=== PATIENT | male | born 1990 | race Caucasian/White ===

== ENCOUNTER → 2017-03-08 10:03 | Outpatient (CLI) | payer BC, SELFPAY ==
[2017-03-08 11:05] LABS: Basophils # 0.1 K/mm3 (0-0.2); Basophils % 0.7 % (0.1-2.0); Eosinophils # 0.2 K/mm3 (0.0-0.4); Eosinophils % 2.3 % (0.1-12.0); Hematocrit 47.1 % (42.0-52.0); Hemoglobin 15.4 g/dL (14.1-18.0); Lymphocytes # 1.9 K/mm3 (0.7-4.5); Lymphocytes % 24.4 K/mm3 (10-50); Mean Corpuscular HGB Conc 32.6 g/dL (31.8-35.4); Mean Corpuscular Hemoglobin 29.4 pg (27.0-31.2); Monocytes # 0.6 K/mm3 (0.1-1.0); Neutrophils # 5.1 K/mm3 (1.8-7.8); Neutrophils % 64.7 % (37.0-80.0); Platelet Count 336 K/mm3 (142-424); Red Blood Count 5.24 M/mm3 (4.60-6.20); Red Cell Distribution Width 13.4 % (11.5-17.5); White Blood Count 7.8 K/mm3 (4.8-10.8)
[2017-03-08 12:10] LABS: Anion Gap 8.6 mEq/L (5-15); Blood Urea Nitrogen 5 mg/dL (7-18); Carbon Dioxide 33 mmol/L (21.0-32.0); Chloride 102 mmol/L (98-107); Creatinine,Serum 0.97 mg/dL (0.70-1.30); Estimated Glomerular Filt Rate > 60 ml/min (>60); GFR (African American) > 60 ML/MIN (>60); Glucose 93 mg/dL (74-106); Potassium 4.6 mmoL/L (3.5-5.1); Sodium 139 mmol/L (136-145)
== END ==
PROVIDERS: PCP Family Medicine; Visit Provider Surgery
DX: L05.01 Pilonidal cyst with abscess (principal); Z01.812 Encounter for preprocedural laboratory examination
CPT/HCPCS: 36415; 80048; 85025

== ENCOUNTER 2017-03-12 10:03 | Day surgery (SDC) | payer BC, SELFPAY ==
[2017-03-11 14:27] VITALS: BMI 26.9
[2017-03-12] VITALS (12 sets, daily range): BP systolic 105–128; BP diastolic 58–89; PULSE 64–92; RESP 16–18; TEMP 36.1–43; O2SAT 96–98
--- NOTE | 2017-03-12 13:05 | HMH.OPNOTE ---
Date of procedure: 03/12/17 Pre-op Diagnosis:: Pilonidal cyst with abscess Post-op diagnosis:: same Procedure performed:: Incision and drainage of pilonidal cyst with abscess with debridement of extensive pilonidal disease Surgeon:: Aiden Parker MD CHIEF WHARFINGER:: Rogers Salinas Anesthesia: GETA Estimated blood loss (mL): 25 Clinical Note:: Patient is a 26-year-old white male whom I had seen in the office about 3 weeks ago with a pilonidal cyst. He has had some tenderness for about 6 or 7 weeks at this point. He had originally been seen by a physician in [facility] [place] and started on Augmentin. I saw him in the office on 02/18/2017 and had diagnosed him with a pilonidal cyst. He was given a prescription for Bactrim for possible MRSA infection. He presented the office a couple of days ago with increasing tenderness. He had significant exacerbation. Options were discussed with the patient and plan was made for incision and drainage with debridement and unroofing of pilonidal disease. Operative findings:: Extensive pilonidal disease with abscess subcutaneous superiorly Operative note:: Patient was taken to the operating room. General anesthesia was induced via endotracheal tube. He was repositioned in prone position. Area was prepped and draped in the standard surgical fashion. Patient had evidence of extensive pilonidal disease with multiple punctate sinuses in the mid gluteal cleft. Superiorly there was evidence of some mild induration. Limited incision was made around the pilonidal sinuses. There was some underlying fibrosis and evidence of granulation tissue consistent with chronic pilonidal disease. This was sharply dissected free from normal subcutaneous tissues. Wound was probed and tracked superiorly to a separate pilonidal sinus. Skin was then removed and there was underlying granulation tissue. Some pus exuded from the wound. This was sent for culture. These note that initial culture was performed as well. There was a subcutaneous abscess noted in the right lateral location superiorly. This was debrided using curettes and unroofed somewhat. Chronic granulation tissue consistent with pilonidal disease was thoroughly curetted and debrided. Wound was thoroughly irrigated. Local anesthetic was infiltrated superficially and deeply. Wound was packed with moistened saline gauze. Clean dry sterile dressing was applied. Plan will be for moist to dry saline packing daily at this point. Patient is to be reassessed in 48 to 72 hours and possibly will initiate negative pressure wound therapy dressing. Please note that the size of the wound measures 8 cm longitudinally, 2 cm wide, 2.5 cm in depth. There is minimal undermining less than 1 cm in the superior right location at the site of subcutaneous abscess. Condition: stable Disposition: PACU Specimens:: Pilonidal tissue Complications:: None
--- NOTE | 2017-03-12 13:09 | P.OP_ITS ---
Date of procedure: 03/12/17 Pre-op Diagnosis:: Pilonidal cyst with abscess Post-op diagnosis:: same Procedure performed:: Incision and drainage of pilonidal cyst with abscess with debridement of extensive pilonidal disease Surgeon:: Aiden Parker MD MATERIAL HANDLING EQUIPMENT STEVEDORE:: Rogers Salinas Anesthesia: GETA Estimated blood loss (mL): 25 Clinical Note:: Patient is a 26-year-old white male whom I had seen in the office about 3 weeks ago with a pilonidal cyst. He has had some tenderness for about 6 or 7 weeks at this point. He had originally been seen by a physician in [facility] and started on Augmentin. I saw him in the office on 02/18/2017 and had diagnosed him with a pilonidal cyst. He was given a prescription for Bactrim for possible MRSA infection. He presented the office a couple of days ago with increasing tenderness. He had significant exacerbation. Options were discussed with the patient and plan was made for incision and drainage with debridement and unroofing of pilonidal disease. Operative findings:: Extensive pilonidal disease with abscess subcutaneous superiorly Operative note:: Patient was taken to the operating room. General anesthesia was induced via endotracheal tube. He was repositioned in prone position. Area was prepped and draped in the standard surgical fashion. Patient had evidence of extensive pilonidal disease with multiple punctate sinuses in the mid gluteal cleft. Superiorly there was evidence of some mild induration. Limited incision was made around the pilonidal sinuses. There was some underlying fibrosis and evidence of granulation tissue consistent with chronic pilonidal disease. This was sharply dissected free from normal subcutaneous tissues. Wound was probed and tracked superiorly to a separate pilonidal sinus. Skin was then removed and there was underlying granulation tissue. Some pus exuded from the wound. This was sent for culture. These note that initial culture was performed as well. There was a subcutaneous abscess noted in the right lateral location superiorly. This was debrided using curettes and unroofed somewhat. Chronic granulation tissue consistent with pilonidal disease was thoroughly curetted and debrided. Wound was thoroughly irrigated. Local anesthetic was infiltrated superficially and deeply. Wound was packed with moistened saline gauze. Clean dry sterile dressing was applied. Plan will be for moist to dry saline packing daily at this point. Patient is to be reassessed in 48 to 72 hours and possibly will initiate negative pressure wound therapy dressing. Please note that the size of the wound measures 8 cm longitudinally, 2 cm wide, 2.5 cm in depth. There is minimal undermining less than 1 cm in the superior right location at the site of subcutaneous abscess. Condition: stable Disposition: PACU Specimens:: Pilonidal tissue Complications:: None
--- NOTE | 2017-03-12 13:12 | HMH.ANESCL ---
[facility] Anesthesia Checklist - Structural Data Planned Operative Procedure/s: I&D pilonidal cyst Consent for Planned Operative Procedure(s) Verified: Yes - NPO Status Verified Time NPO: 00:00 - Additional verifications Anesthesia Reactions: No - Airway Assessment C-Spine Mobility Assessed: Yes (MP2) TMJ Mobility Assessed: Yes Dentition: Partials - Anesthesia Plan Anesthesia Risk discussed: Yes Anesthesia Plan: Verified ASA Class: II Anesthesia Type: General [facility] Anesthesia HX I have reviewed the patient's past medical history: Yes Medical History: Denies:: Cancer, Diabetes Mellitus Type 1, MRSA, Seizures Other Medical History: Denies: Blood Transfusion Reaction Comment: smoker Laterality Cases: Bilateral: Tonsillectomy Other Surgeries: Yes: No Previous Surgery Amputation: No Fractures: No *Family Hx:: Cancer
--- NOTE | 2017-03-12 13:15 | P.PN_ITS ---
[facility] Anesthesia Record Part II Discharge Time: 13:40 Destination: [facility] PACU nurse assessment reviewed?: Yes Patient Condition:: Good Anesthesia Complications:: None
--- NOTE | 2017-03-12 13:15 | P.PN_ITS ---
[facility] Anesthesia Record Part I Intake, IV Amount: 1,300 Estimated blood loss (mL): 10 Urine output (mL): 0 Blood Pressure: 119/58 SaO2: 98 Pulse Rate: 92 Respiratory Rate: 16 Temperature: 97 F Patient is:: Drowsy, Stable Stable to PACU at:: 13:10
--- NOTE | 2017-03-12 13:15 | HMH.ANESII ---
[facility] Anesthesia Record Part II Discharge Time: 13:40 Destination: [facility] PACU nurse assessment reviewed?: Yes Patient Condition:: Good Anesthesia Complications:: None
== END 2017-03-12 14:26 | disposition home or self-care (01) ==
LOC: OR 10:05
PROVIDERS: Family Provider Family Medicine; PCP Family Medicine; Visit Provider Surgery
PROC: (CPT 10081; principal; 2017-03-12 11:30)
DX: L05.01 Pilonidal cyst with abscess (principal)
CPT/HCPCS: 10081; 87070; 87205; 96374; J0131; J2405; J2710

== ENCOUNTER → 2020-12-24 20:23 | Outpatient (CLI) | payer OTHER, SELFPAY | PROVIDERS: Visit Provider Nurse Practitioner Family | DX: Z20.822 Contact with and (suspected) exposure to COVID-19 (principal); J02.9 Acute pharyngitis, unspecified | CPT/HCPCS: C9803; U0003; U0005 ==

== ENCOUNTER → 2021-03-06 09:37 | Outpatient (CLI) | payer OTHER, SELFPAY ==
[2021-03-06 10:05] LABS: Basophils # 0.1 K/mm3 (0-0.2); Basophils % 1.2 % (0.1-2.0); Eosinophils # 0.4 K/mm3 (0.0-0.4); Eosinophils % 3.9 % (0.1-12.0); Hematocrit 49.7 % (42.0-52.0); Hemoglobin 16.7 g/dL (14.1-18.0); Lymphocytes # 3.2 K/mm3 (0.7-4.5); Lymphocytes % 32.3 % (10-50); Mean Corpuscular HGB Conc 33.5 g/dL (31.8-35.4); Mean Corpuscular Hemoglobin 30.9 pg (27.0-31.2); Mean Corpuscular Volume 92.3 fl (80-94); Monocytes # 0.8 K/mm3 (0.1-1.0); Monocytes % 8.2 % (1.7-9.3); Neutrophils # 5.3 K/mm3 (1.8-7.8); Neutrophils % 54.4 % (37.0-80.0); Platelet Count 312 K/mm3 (142-424); Red Blood Count 5.38 M/mm3 (4.60-6.20); Red Cell Distribution Width 13.2 % (11.5-17.5); White Blood Count 9.8 K/mm3 (4.8-10.8)
[2021-03-06 11:19] LABS: Alanine Aminotransferase 23 U/L (12-78); Albumin Level 4.7 g/dl (3.5-5.0); Albumin/Globulin Ratio 1.3 (1.1-1.8); Alkaline Phosphatase 78 U/L (38-126); Anion Gap 12.9 mEq/L (5-15); Aspartate Amino Transferase 32 U/L (17-59); Bilirubin,Total 0.8 mg/dl (0.2-1.3); Blood Urea Nitrogen 14 mg/dl (9-20); Calcium 9.9 mg/dl (8.4-10.2); Carbon Dioxide 31 mmol/L (22.0-30.0); Chloride 97 mmol/L (98-107); Chol/HDL Ratio 3.9 (1-3.5); Cholesterol 211 mg/dl (140-200); Estimated Glomerular Filt Rate 88 ml/min (>60); GFR (African American) 107 ML/MIN (>60); Globulin 3.5 g/dL (1.3-3.2); Glucose 99 mg/dl (74-100); HDL Cholesterol 54 mg/dl (40-60); Potassium 3.9 mmoL/L (3.5-5.1); Sodium 137 mmol/L (136-145); Total Protein,Serum 8.2 g/dl (6.3-8.2); Triglycerides 106 mg/dl (30-150); VLDL Cholesterol 21 mg/dL (0-40)
[2021-03-06 11:30] LABS: Direct LDL Cholesterol 131.86 mg/dL (100-129)
[2021-03-06 11:35] LABS: 25-OH Vitamin D, Total 48.1 ng/mL (30-100)
[2021-03-06 12:07] LABS: Vitamin B12 664 pg/mL (239-931)
== END ==
PROVIDERS: Visit Provider Internal Medicine Adolescent Medicine
DX: R53.81 Other malaise (principal); R63.5 Abnormal weight gain; E66.3 Overweight; Z68.29 Body mass index [BMI] 29.0-29.9, adult
CPT/HCPCS: 36415; 80053; 80061; 82306; 82607; 84443; 85025

== ENCOUNTER → 2021-03-13 14:00 | Outpatient (CLI) | payer OTHER, SELFPAY | PROVIDERS: PCP Internal Medicine Adolescent Medicine; Visit Provider Nurse Practitioner Family | DX: R40.0 Somnolence; R41.3 Other amnesia; R06.83 Snoring; G47.33 Obstructive sleep apnea (adult) (pediatric) | CPT/HCPCS: 95806 ==

== ENCOUNTER → 2021-04-12 09:49 | Outpatient (CLI) | payer OTHER, SELFPAY ==
[2021-04-12 11:46] LABS: Ferritin 96.4 ng/ml (17.9-464)
== END ==
PROVIDERS: PCP Internal Medicine Adolescent Medicine; Visit Provider Nurse Practitioner Family
DX: E83.10 Disorder of iron metabolism, unspecified (principal); G25.81 Restless legs syndrome
CPT/HCPCS: 36415; 82728

== ENCOUNTER 2021-08-14 09:39 | Emergency (ER) | payer OTHER, SELFPAY ==
[2021-08-14 09:46] VITALS: BP 157/99; PULSE 89; RESP 17; TEMP 37.2; O2SAT 98; BMI 32.1
--- NOTE | 2021-08-14 10:03 | HMH.EDUTC ---
[facility] [place] Clinical Impression: Infection of skin of both ear lobes, Cellulitis of external ear, bilateral Disposition: Home, Self-Care Condition on Discharge: Good Instructions: DI for Cellulitis -- Adult, Cellulitis Additional Instructions: Keep the wounds clean and dry. Follow up with your regular doctor. Take the antibiotics as directed and apply the topical antibiotics as directed. Watch the wounds for signs of worsening infection, such as worsening redness, drainage, swelling, etc. GO TO THE ER FOR ANY WORSENING SYMPTOMS I recommend that you let the holes grow completely up and heal. Then you could redo your piercings at that time. Apply warm wet compresses to the affected area three or four times per day. Prescriptions: Sulfamethoxazole/Trimethoprim [Bactrim DS tablet] 1 each PO BID 10 Days #20 tab Transmission Status: Received by [facility] Mupirocin [Bactroban 2% Ointment 22gm tube] 1 applicatio TP TID 7 Days #1 gm Transmission Status: Received by [facility] cephALEXin [cephALEXin 500mg capsule] 500 mg PO Q6H 10 Days #40 cap Transmission Status: Received by [facility] Referrals: David Houston MD [Primary Care Provider] - Forms: Work/School Release Time of Disposition: 10:17 Medical Decision Making - Medical Records Medical records reviewed: No: I reviewed the patient's medical records. - Nabil Inquiry Pt receiving controlled substance: No Vital Signs: 08/14/21 09:46 08/14/21 10:21 Temperature 98.9 F 98.9 F Temperature Source Oral Pulse Rate 89 Pulse Rate [Left Radial] 89 Respiratory Rate 17 17 Blood Pressure 157/99 H Blood Pressure [Right Arm] 157/99 H Blood Pressure Mean [Right Arm] 118 02 Sat by Pulse Oximetry 98 Orders (Tests/Meds): ED MEDICATIONS Discontinued Medications Generic Name Dose Route Start Last Admin Trade Name Freq PRN Reason Stop Dose Admin Ceftriaxone Sodium 1 gm 08/14/21 10:03 08/14/21 10:06 Ceftriaxone 1gm Vial IM 08/14/21 10:04 1 gm ONCE ONE Administration Lidocaine HCl 0 ml 08/14/21 10:03 08/14/21 10:06 Lidocaine 1% 5ml Pf Vial IM 08/14/21 10:04 2 ml ONCE ONE Administration ORDERS Category Date Time Status Wound Culture and Gram Stain Stat Micro 08/14/21 10:00 Received [facility] [place] HPI - General Stated complaint: infection in earlobes Time Seen by Provider: 08/14/21 09:50 Description of Symptoms (Recalled from Triage Doc. by RN): patient comes in today with complaints of infected ear lobes from gauges HEENT Symptoms (Recalled from RN notes): No Resp Symptoms (Recalled from RN notes): No Skin Symptoms (Recalled from RN notes): Yes MS Symptoms (Recalled from RN notes): No Functional Status (Recalled from RN notes): wnl - History of Present Illness Provider Complaint: He states that since yesterday he has had bilateral ear lobe infections. He has a history of having gauges in both earlobes. He states that last week he increase the size of the gauges and his infection is probably a result of that. He has had a low grade fever and chills since this morning. - Related Data Home Medications Medication Instructions Recorded Confirmed escitalopram oxalate 10 mg tablet 10 mg PO DAILY tab 04/12/21 07/26/21 tizanidine 4 mg tablet 4 mg PO Q12H PRN tab 04/12/21 07/26/21 Previous Rx's Medication Instructions Recorded Mupirocin [Bactroban 2% Ointment 1 applicatio TP TID 7 Days #1 gm 08/14/21 22gm tube] Sulfamethoxazole/Trimethoprim 1 each PO BID 10 Days #20 tab 08/14/21 [Bactrim DS tablet] cephALEXin [cephALEXin 500mg 500 mg PO Q6H 10 Days #40 cap 08/14/21 capsule] Allergies Allergy/AdvReac Type Severity Reaction Status Date / Time No Known Allergies Allergy Verified 08/14/21 09:54 - Worker's Comp Is this a Worker's Comp case?: No [facility] History - Hepatitis A Screen Attestation statement:: This patient has been s
[2021-08-14 10:21] VITALS: BP 157/99; PULSE 89; RESP 17; TEMP 37.2
== END 2021-08-14 10:27 | disposition home or self-care (01) ==
PROVIDERS: Emergency Provider Nurse Practitioner Family; PCP Internal Medicine Adolescent Medicine
DX: H60.13 Cellulitis of external ear, bilateral (principal); A49.02 Methicillin resistant Staphylococcus aureus infection, unspecified site; W49.04XA Ring or other jewelry causing external constriction, initial encounter; Z22.322 Carrier or suspected carrier of Methicillin resistant Staphylococcus aureus; Z16.11 Resistance to penicillins; Z16.39 Resistance to other specified antimicrobial drug
CPT/HCPCS: 87070; 87077; 87186; 87205; 96372; 99212; G0463; J0696

== ENCOUNTER 2021-08-22 13:47 | Emergency (ER) | payer OTHER, SELFPAY ==
[2021-08-22 13:50] VITALS: BP 152/97; PULSE 81; RESP 19; TEMP 37.3; O2SAT 96; BMI 31.8
--- NOTE | 2021-08-22 14:16 | HMH.EDUTC ---
[facility] [place] Clinical Impression: Nausea vomiting and diarrhea Disposition: Home, Self-Care Condition on Discharge: Good Instructions: Diarrhea, Nausea and Vomiting-Adult, Ondansetron Additional Instructions: Drink extra fluids with and between meals. If you have difficulty drinking, try very small amounts of water or suck on ice chips. ? Avoid fruit juices, as these do not replace minerals and can actually increase diarrhea. ? Children and adults can use sports drinks to replenish electrolytes. Younger children and infants should use products formulated for children, like oral rehydration solutions. ? Eat food in small amounts and let your stomach recover. ? Get lots of rest. You may feel tired or weak. ? No greasy or fried foods for the next 24-48 hours BRAT diet Bananas Rice Apples and [place] ? Make sure to drink plenty of liquids ? Return if needed ? Straight to ER if any life threatening symptoms ? Zofran as prescribed ? Follow up with family doctor in the next 48-72 hours if no improvement or any worsening of symptoms Prescriptions: Ondansetron [Zofran 4mg ODT] 4 mg PO TIDP PRN #10 tab PRN Reason: Nausea Transmission Status: Pending to [facility] Referrals: David Houston MD [Primary Care Provider] - As needed Forms: Work/School Release Time of Disposition: 14:41 Medical Decision Making - Nabil Inquiry Pt receiving controlled substance: No Nabil was queried for this patient: No Vital Signs: 08/22/21 13:50 Temperature 99.1 F Temperature Source Temporal Artery Scan Pulse Rate [Right Brachial] 81 Respiratory Rate 19 Blood Pressure [Right Arm] 152/97 H Blood Pressure Mean [Right Arm] 115 Blood Pressure Source [Right Arm] Automatic Cuff Blood Pressure Position [Right Arm] Sitting 02 Sat by Pulse Oximetry 96 Oxygen Delivery Method Room Air Orders (Tests/Meds): ORDERS Category Date Time Status Covid-19 Nasal PCR ([facility]) Routine Lab 08/22/21 14:31 Ordered [facility] [place] H[place] - General Stated complaint: nausea, chills, diarrhea Time Seen by Provider: 08/22/21 14:16 Mode of Arrival: Ambulatory Source of Information: Patient Limitations: No Limitations Description of Symptoms (Recalled from Triage Doc. by RN): PATIENT C/O NAUSEA, DIARRHEA, AND VOMITING SINCE THIS MORNING. NEEDS A WORK NOTE HEENT Symptoms (Recalled from RN notes): No Resp Symptoms (Recalled from RN notes): No Skin Symptoms (Recalled from RN notes): No MS Symptoms (Recalled from RN notes): No Functional Status (Recalled from RN notes): WNL - History of Present Illness Provider Complaint: Patient state that he woke up this morning with Nausea, vomiting and diarrhea States that he was unable to go to work this morning due to not feeling well so he came in to get checked - Related Data Home Medications Medication Instructions Recorded Confirmed escitalopram oxalate 10 mg tablet 10 mg PO DAILY tab 04/12/21 08/22/21 Previous Rx's Medication Instructions Recorded Ondansetron [Zofran 4mg ODT] 4 mg PO TIDP PRN #10 tab 08/22/21 Allergies Allergy/AdvReac Type Severity Reaction Status Date / Time No Known Allergies Allergy Verified 08/14/21 09:54 - Worker's Comp Is this a Worker's Comp case?: No [facility] History - Hepatitis A Screen Attestation statement:: This patient has been screened for Hepatitis A risk factors. I have reviewed the patient's past medical history: Yes Medical History: Reports:: Anxiety, Depression Denies:: Cancer, Diabetes Mellitus Type 1, MRSA, Seizures Other Medical History: Reports: Other. Denies: Blood Transfusion Reaction Comment: smoker Laterality Cases: Bilateral: Tonsillectomy Other Surgeries: Yes: No Previous Surgery, Other Amputation: No Fractures: No Comment: pilonidal cyst from tailbone - Social History Smoking Status: Current every day smoker Tobacco Type: e-cigarettes Alcohol Intake: never Alcohol Intake Frequency:: 0-2 drinks per day Substance Use Ty
[2021-08-22 14:45] VITALS: BP 152/97; PULSE 81; RESP 19; TEMP 37.3; O2SAT 96
== END 2021-08-22 14:49 | disposition home or self-care (01) ==
PROVIDERS: Emergency Provider Nurse Practitioner; PCP Internal Medicine Adolescent Medicine
DX: R11.2 Nausea with vomiting, unspecified (principal); R19.7 Diarrhea, unspecified; R68.83 Chills (without fever)
CPT/HCPCS: 99212; C9803; G0463; U0003; U0005

== ENCOUNTER 2024-04-28 12:15 | Emergency (ER) | payer OTHER, SELFPAY ==
[2024-04-28 12:17] VITALS: BP 140/90; PULSE 89; RESP 14; TEMP 37; O2SAT 97; BMI 30.8
--- NOTE | 2024-04-28 12:26 | HMH.EDGENADL ---
Discharge Plan Disposition Patient Disposition: Home, Self-Care Condition: Good Prescriptions Prescriptions: New kwruodocigsgxqh-kiycmegzq-BF [Bromfed DM] 2-30-10 mg/5 mL syrup 5 ml PO Q4H PRN (Reason: sinus symptoms) Qty: 118 0RF Referrals Follow up/Referrals: David Houston MD [Primary Care Provider] - See instructions Activity Restrictions/Add. Instructions Additional Instructions/Restrictions: I have sent Bromfed into your pharmacy to help with your upper respiratory symptoms and cough. Continue taking Tylenol alternating with Motrin for your symptoms. If you have continued new or worsening signs or symptoms follow-up with your PCP within 48 hours or return to the ER as needed. Clinical Impressions Clinical Impression: Respiratory tract infection Stand Alone Forms Stand Alone Forms: Work/School Release Print Language Print Language: Khmer Discharge ED Provider: Kulwinder Jules General Adult HPI <CASANDRA Barnhart - Last Filed: 04/28/24 15:00> General Chief complaint: Upper Respiratory Infection Stated complaint: congestion, cough, headache Time Seen by Provider: 04/28/24 12:26 History of Present Illness HPI narrative: Patient presents for evaluation of her upper respiratory tract infection. Patient states he began feeling poorly yesterday and had a fever when he woke up this morning. He reports a dry nonproductive cough myalgias and headache but denies chest pain shortness of breath chills hemoptysis hematochezia melena nausea vomit diarrhea. He is not taking any home remedies. Related Data Previous Rx's ?Medication ?Instructions ?Recorded rxjwbykuqcvkisc-kgtcvixhhkvfmie-UE 5 ml PO Q4H PRN sinus symptoms 04/28/24 2 mg-30 mg-10 mg/5 mL oral syrup #118 mL (Bromfed DM) Allergies Allergy/AdvReac Type Severity Reaction Status Date / Time No Known Allergies Allergy Verified 09/06/21 16:09 PFSH <CASANDRA Barnhart - Last Filed: 04/28/24 15:00> PFS Disclaimer: The information contained in this section may have been updated after the patient was seen, as this information can be updated by other users. Social History Smoking Status: Current every day smoker tobacco type: e-cigarettes second hand exposure: Yes alcohol intake: never counseling provided: provider counseling substance use type: former substance user, heroin and methamphetamine current occupational status: other Travel in the last 8 weeks: None household members: family and children housing: house current occupation: [employer] current occupational exposures/hazards: No Have you lived/traveled outside [place] in past 30 days?: No Contact w/someone who lives/traveled outside [place] past 30 days?: No Exposure to someone with infectious disease in past 14 days?: No Do you have a fever (greater than 100.4 F or 38 C)?: No Have you tested positive for COVID-19: No Exposed to someone with COVID-19 in past 14 days?: No Do you have a sore throat?: No Do you have a cough?: Yes Do you have any weakness?: No Do you have any diarrhea?: No Are you experiencing any unusual bleeding?: No Do you have any muscle aches/pain?: No Do you have any abdominal pain?: No Are you experiencing loss of taste or smell?: No Other Medical History Have you received the Flu Vaccine for this season: No Have you received the Pneumonia Vaccine: No <CASANDRA Barnhart - Last Filed: 04/28/24 15:00> ROS Obtained: Yes Systems reviewed as appropriate & no additional complaints except as documented Physical Exam <CASANDRA Barnhart - Last Filed: 04/28/24 15:00> General General appearance: alert and in no apparent distress Respiratory Respiratory exam: Present normal lung sounds bilaterally Cardiovascular Cardiovascular exam: Present regular rate Neurological Exam Neurological exam: Present alert and oriented X3 Medical Decision Making <CASANDRA Barnhart - Last Filed: 04/28/24 15:00> Medical Records Screening: Per USPSTF and CDC recommendations, given the prevalence of disease in our region, it is our hospital?s policy to screen for HIV and viral Hepatitis for all patients aged 18 and over and those with ongoing risk factors. Nabil Inquiry Pt receiving controlled substance: No Vital Signs: 04/28/24 12:17 04/28/24 13:15 04/28/24 14:05 Temperature 98.6 F 99.4 F Temperature Source Oral Oral Pulse Rate 77 78 Pulse Rate [Left Radial] 89 Respiratory Rate 14 18 16 Blood Pressure 127/69 122/74 Blood Pressure [Right Arm] 140/90 Blood Pressure Mean [Right Arm] 106 Blood Pressure Source Automatic Cuff Automatic Cuff Blood Pressure Position Sitting Sitting 02 Sat by Pulse Oximetry 97 97 Oxygen Delivery Method Room Air Room Air Room Air Lab Data Lab results reviewed: Yes I reviewed the patient's lab results. Lab Results 04/28/24 12:20: SARS-CoV-2 (PCR) Not detected, Influenza A Untype (PCR) Not detected, Influenza Type B (PCR) Not detected Orders (Tests/Meds): ED MEDICATIONS Discontinued Medications Generic Name Dose Route Start Last Admin Trade Name Nidia PRN Reason Stop Dose Admin Acetaminophen 1,000 mg 04/28/24 12:31 04/28/24 12:35 Acetaminophen 500mg Tab PO 04/28/24 12:32 1,000 mg ONCE ONE Administration Ibuprofen 800 mg 04/28/24 12:36 04/28/24 12:37 Ibuprofen 800 Mg Tablet PO 04/28/24 12:37 800 mg ONCE ONE Administration ORDERS Category Date Time Status Rapid PCR Covid and Flu A/B Stat Lab 04/28/24 12:20 Completed Medical Decision Narrative: In summary patient is a 33-year-old male who presents to the emergency department for evaluation of respiratory tract infection symptoms. Patient is hemodynamically stable upon arrival, afebrile currently at 98.6. Physical exam reveals erythematous posterior pharynx without exudate, clear breath sounds without any increased work of breathing or adventitious sounds. Differential diagnosis includes upper or lower respiratory tract infection etc. Initial workup will be conducted with COVID and flu swabs after shared decision making discussed myself and the patient as he would like to know if he has the flu.. Initial interventions include Tylenol and ibuprofen. Initial workup reviewed by me shows that his COVID and flu's are negative. Upon repeat evaluation patient reported that his myalgias were better after Tylenol Motrin. Given this patient is appropriate for discharge with instructions to continue Tylenol Motrin for his symptoms and a prescription for Bromfed sent to his pharmacy. Patient to follow-up with PCP if he has continued new or worsening signs or symptoms or return to the ER as needed. <Kulwinder Jules MD - Last Filed: 04/29/24 12:23> Vital Signs: 04/28/24 12:17 04/28/24 13:15 04/28/24 14:05 Temperature 98.6 F 99.4 F Temperature Source Oral Oral Pulse Rate 77 78 Pulse Rate [Left Radial] 89 Respiratory Rate 14 18 16 Blood Pressure 127/69 122/74 Blood Pressure [Right Arm] 140/90 Blood Pressure Mean [Right Arm] 106 Blood Pressure Source Automatic Cuff Automatic Cuff Blood Pressure Position Sitting Sitting 02 Sat by Pulse Oximetry 97 97 Oxygen Delivery Method Room Air Room Air Room Air Lab Data Lab Results 04/28/24 12:20: SARS-CoV-2 (PCR) Not detected, Influenza A Untype (PCR) Not detected, Influenza Type B (PCR) Not detected Orders (Tests/Meds): ED MEDICATIONS Discontinued Medications Generic Name Dose Route Start Last Admin Trade Name Nidia PRN Reason Stop Dose Admin Acetaminophen 1,000 mg 04/28/24 12:31 04/28/24 12:35 Acetaminophen 500mg Tab PO 04/28/24 12:32 1,000 mg ONCE ONE Administration Ibuprofen 800 mg 04/28/24 12:36 04/28/24 12:37 Ibuprofen 800 Mg Tablet PO 04/28/24 12:37 800 mg ONCE ONE Administration ORDERS Category Date Time Status Rapid PCR Covid and Flu A/B Stat Lab 04/28/24 12:20 Completed Medical Decision Narrative: In summary patient is a 33-year-old male who presents to the emergency department for evaluation of respiratory tract infection symptoms. Patient is hemodynamically stable upon arrival, afebrile currently at 98.6. Physical exam reveals erythematous posterior pharynx without exudate, clear breath sounds without any increased work of breathing or adventitious sounds. Differential diagnosis includes upper or lower respiratory tract infection etc. Initial workup will be conducted with COVID and flu swabs after shared decision making discussed myself and the patient as he would like to know if he has the flu.. Initial interventions include Tylenol and ibuprofen. Initial workup reviewed by me shows that his COVID and flu's are negative. Upon repeat evaluation patient reported that his myalgias were better after Tylenol Motrin. Given this patient is appropriate for discharge with instructions to continue Tylenol Motrin for his symptoms and a prescription for Bromfed sent to his pharmacy. Patient to follow-up with PCP if he has continued new or worsening signs or symptoms or return to the ER as needed. I was consulted by the RACHAEL, and we discussed the complexity of the problems being addressed. I approve the treatment and management plan for this patient's care in the emergency department, thus performing a substantive portion of the medical decision making. Kulwinder Jules MD Critical Care <CASANDRA Barnhart - Last Filed: 04/28/24 15:00> Critical Care Time Critical Care Time: No
[2024-04-28 12:29] LABS: Coronavirus 19, PCR Not Detected (NotDetected); Influenza A, PCR Not Detected (NotDetected); Influenza B, PCR Not Detected (NotDetected)
[2024-04-28] MEDS: ACETAMINOPHEN 500MG TAB 1000 MG PO (12:35)
[2024-04-28] MEDS: IBUPROFEN 800 MG TABLET PO (12:37)
[2024-04-28 13:15] VITALS: BP 127/69; PULSE 77; RESP 18; O2SAT 97
[2024-04-28 14:05] VITALS: BP 122/74; PULSE 78; RESP 16; TEMP 37.4; O2SAT 98
== END 2024-04-28 14:15 | disposition home or self-care (01) ==
PROVIDERS: Emergency Provider Student in an Organized Health Care Education/Training Program; PCP Internal Medicine Adolescent Medicine
DX: J98.8 Other specified respiratory disorders (principal); R50.9 Fever, unspecified; R05.9 Cough, unspecified; R51.9 Headache, unspecified; M79.10 Myalgia, unspecified site; F17.290 Nicotine dependence, other tobacco product, uncomplicated
CPT/HCPCS: 87636; 99283

== ENCOUNTER 2024-06-26 15:53 | Emergency (ER) | payer OTHER, SELFPAY ==
[2024-06-26] VITALS (12 sets, daily range): BP systolic 135–180; BP diastolic 94–136; PULSE 82–99; RESP 18; TEMP 36.6; O2SAT 97–98; BMI 31.7
--- NOTE | 2024-06-26 16:00 | ED_ITS ---
<Statement entered by Lizy Price DO - 06/26/24 22:40> I was consulted by the RACHAEL, and we discussed the complexity of the problems being addressed. I approved the treatment and management plan for this patient's care in the emergency department, thus performing a substantive portion of the medical decision making. Lizy Price DO Discharge Plan Disposition Patient Disposition: Home, Self-Care Condition: Good Prescriptions Prescriptions: No Action wbiyvygzgqutfzn-[id number] [Bromfed DM] 2-30-10 mg/5 mL syrup 5 ml PO Q4H PRN (Reason: sinus symptoms) Qty: 118 0RF Referrals Follow up/Referrals: Javi Cornell DO [Staff Physician] - See instructions Provider,MD Amanda [Primary Care Provider] - See instructions Arnold Tripathi MD [Staff Physician] - See instructions Activity Restrictions/Add. Instructions Additional Instructions/Restrictions: I have referred you both to a PCP as well as cardiology for ongoing management of both your sleep apnea and high blood pressure. Please call on Saturday to make your appointment. I recommend starting a low-salt diet and avoiding caffeine and nicotine is much as possible. If you have continued new or worsening signs or symptoms follow-up in the ER as needed. Clinical Impressions Clinical Impression: Hypertension, uncontrolled, Obstructive sleep apnea of adult Print Language Print Language: Bulgarian Discharge ED Provider: Lizy Price General Adult HPI <CASANDRA Barnhart - Last Filed: 06/26/24 20:40> General Chief complaint: Recheck/Abnormal Lab/Rx Stated complaint: HBP 154/104 Time Seen by Provider: 06/26/24 16:00 History of Present Illness HPI narrative: Patient presents for evaluation of headache and high blood pressure. Patient does not currently have a PCP but does have a past medical history of diagnosed sleep apnea. He however lost insurance and does not currently have a CPAP. Patient notes that over the last week or so he has noticed a significantly elevated diastolic blood pressure. Additionally patient reports that he notices that he wakes up frequently feels tired frequently and has a headache most days. He also feels that he is never getting rest. He denies however chest pain shortness of breath fever chills hemoptysis hematochezia melena nausea vomiting diarrhea. He does not currently have a PCP. Related Data Previous Rx's ?Medication ?Instructions ?Recorded yhdkxwhxlwqvnsp-fawduqggwxxgfaz-XV 5 ml PO Q4H PRN sinus symptoms 04/28/24 2 mg-30 mg-10 mg/5 mL oral syrup #118 mL (Bromfed DM) Allergies Allergy/AdvReac Type Severity Reaction Status Date / Time No Known Allergies Allergy Verified 09/06/21 16:09 PFS <CASANDRA Barnhart - Last Filed: 06/26/24 20:40> [facility] Disclaimer: The information contained in this section may have been updated after the patient was seen, as this information can be updated by other users. Social History Smoking Status: Current every day smoker tobacco type: e-cigarettes second hand exposure: Yes alcohol intake: never counseling provided: provider counseling substance use type: former substance user, heroin and methamphetamine current occupational status: other Travel in the last 8 weeks: None household members: family and children housing: house current occupation: [employer] current occupational exposures/hazards: No Have you lived/traveled outside US in past 30 days?: No Contact w/someone who lives/traveled outside US past 30 days?: No Exposure to someone with infectious disease in past 14 days?: No Do you have a fever (greater than 100.4 F or 38 C)?: No Have you tested positive for COVID-19: No Exposed to someone with COVID-19 in past 14 days?: No Do you have a sore throat?: No Do you have a cough?: No Do you have any weakness?: No Do you have any diarrhea?: No Are you experiencing any unusual bleeding?: No Do you have any muscle aches/pain?: No Do you have any abdominal pain?: No Are you experiencing loss of taste or smell?: No Other Medical History Have you received the Flu Vaccine for this season: No Have you received the Pneumonia Vaccine: No <CASANDRA Barnhart - Last Filed: 06/26/24 20:40> ROS Obtained: Yes Systems reviewed as appropriate & no additional complaints except as documented Physical Exam <CASANDRA Barnhart - Last Filed: 06/26/24 20:40> General General appearance: alert and in no apparent distress Respiratory Respiratory exam: Present normal lung sounds bilaterally Cardiovascular Cardiovascular exam: Present regular rate Neurological Exam Neurological exam: Present alert and oriented X3 Medical Decision Making <CASANDRA Barnhart - Last Filed: 06/26/24 20:40> Medical Records Medical records reviewed: Yes I reviewed the patient's medical records. Screening: Per USPSTF and CDC recommendations, given the prevalence of disease in our region, it is our hospital?s policy to screen for HIV and viral Hepatitis for all patients aged 18 and over and those with ongoing risk factors. Nabil Inquiry Pt receiving controlled substance: No Vital Signs: 06/26/24 16:02 06/26/24 16:03 06/26/24 16:04 Temperature 97.9 F Temperature Source Oral Pulse Rate Pulse Rate [Radial] 99 H Respiratory Rate 18 Blood Pressure 180/136 H 160/100 H Blood Pressure [Right Arm] 160/100 H Blood Pressure Mean 148 120 Blood Pressure Mean [Right Arm] 120 Blood Pressure Source Blood Pressure Source [Right Arm] Automatic Cuff Blood Pressure Position Blood Pressure Position [Right Arm] Sitting 02 Sat by Pulse Oximetry 97 Oxygen Delivery Method Room Air 06/26/24 16:15 06/26/24 16:30 06/26/24 16:45 Temperature Temperature Source Pulse Rate Pulse Rate [Radial] Respiratory Rate Blood Pressure 147/96 H 145/94 H 147/103 H Blood Pressure [Right Arm] Blood Pressure Mean 111 107 117 Blood Pressure Mean [Right Arm] Blood Pressure Source Blood Pressure Source [Right Arm] Blood Pressure Position Blood Pressure Position [Right Arm] 02 Sat by Pulse Oximetry Oxygen Delivery Method 06/26/24 17:15 06/26/24 17:30 06/26/24 17:45 Temperature Temperature Source Pulse Rate Pulse Rate [Radial] Respiratory Rate Blood Pressure 145/101 H 138/100 H 137/99 H Blood Pressure [Right Arm] Blood Pressure Mean 115 113 111 Blood Pressure Mean [Right Arm] Blood Pressure Source Blood Pressure Source [Right Arm] Blood Pressure Position Blood Pressure Position [Right Arm] 02 Sat by Pulse Oximetry Oxygen Delivery Method 06/26/24 18:00 06/26/24 18:15 06/26/24 18:30 Temperature 97.9 F Temperature Source Oral Pulse Rate 82 Pulse Rate [Radial] Respiratory Rate 18 Blood Pressure 135/103 H 148/106 H 138/102 H Blood Pressure [Right Arm] Blood Pressure Mean 112 117 Blood Pressure Mean [Right Arm] Blood Pressure Source Automatic Cuff Blood Pressure Source [Right Arm] Blood Pressure Position Sitting Blood Pressure Position [Right Arm] 02 Sat by Pulse Oximetry Oxygen Delivery Method Room Air Lab Data Lab results reviewed: Yes I reviewed the patient's lab results. Lab Results 06/26/24 16:59: WBC 9.2, RBC 4.41 L, Hgb 14.1, Hct 40.8 L, MCV 92.5, MCH 32.0 H, MCHC 34.6, RDW 12.2, Plt Count 229, MPV 9.4, Neut % (Auto) 62.8, Lymph % (Auto) 24.6, Dickson % (Auto) 9.8 H, Eos % (Auto) 2.1, Baso % (Auto) 0.5, Neut # (Auto) 5.8, Lymph # (Auto) 2.3, Dickson # (Auto) 0.9, Eos # (Auto) 0.2, Baso # (Auto) 0.1, ESR 21 H, D-Dimer 0.60 H, Sodium 140, Potassium 3.5, Chloride 105, Carbon Dioxide 30, Anion Gap 8.5, BUN 17, Creatinine 1.00, Estimated Creat Clear 168, Estimated GFR 87, Est GFR ( Amer) 105, Glucose 102 H, Calcium 8.9, Magnesium 2.0, Total Bilirubin 0.7, AST 60 H, ALT 74, Alkaline Phosphatase 82, Troponin I < 0.01, C-Reactive Protein 3.3, NT-Pro-B Natriuret Pep < 20.0, Total Protein 7.6, Albumin 4.3, Globulin 3.3 H, Albumin/Globulin Ratio 1.3, TSH 1.80, Free T4 Index 2.3 L, Thyroxine (T4) 6.7, T3 Uptake 35, HCV Ab BLANQUITA w/Rflx PCR Qn Reactive, HIV Ag/Ab Combo Qual Negative 06/26/24 16:59 06/26/24 16:59 Orders (Tests/Meds): ORDERS Category Date Time Status Chest XR 2 view (NOT portable) [XR chest 2V] Stat Exams 06/26/24 16:30 Completed BNP [NT Pro Brain Natriuretic Pep.] Stat Lab 06/26/24 16:59 Completed CBC w/Auto Diff [Complete Blood Count Auto Diff] Stat Lab 06/26/24 16:59 Completed CMP [Comprehensive Metabolic Panel] Stat Lab 06/26/24 16:59 Completed CRP [C-Reactive Protein] Stat Lab 06/26/24 16:59 Completed D-Dimer Stat Lab 06/26/24 16:59 Completed ESR [Erythrocyte Sedimentation Rate] Stat Lab 06/26/24 16:59 Completed HCV RNA PCR, Quant Stat Lab 06/26/24 16:59 Received HIV Combo Stat Lab 06/26/24 16:59 Completed Hepatitis C Ab Qual. W/ RFX Stat Lab 06/26/24 16:59 Completed Magnesium Stat Lab 06/26/24 16:59 Completed Thyroid Panel Stat Lab 06/26/24 16:59 Completed Trop I [Troponin I] Stat Lab 06/26/24 16:59 Completed HEART Score History (anamnesis): Slightly suspicious ECG: Normal Age: <45 years Risk factors: 3 or more risk factors Troponin: </= normal limit HEART Score: 2 Medical Decision Narrative: In summary patient is a 33-year-old male who presents to the emergency department for evaluation of headache and elevated blood pressure. Patient is initially hypertensive on arrival with a blood pressure 180/136 heart rate 99 with normal sinus rhythm on the bedside monitor breathing 18 times a minute satting 97% on room air upon arrival, afebrile at 97.9. Physical exam is remarkable for a Emerson Coma Score 15 cranial nerves II through XII intact grossly to exam pupils equal round reactive to light patient has no nuchal rigidity or C-spine tenderness and has full range of motion of the neck, breath sounds clear and equal bilaterally to the bases without adventitious sounds, heart sounds are S1-S2 regular rate and rhythm without murmurs gallops rubs or thrills, patient has no dependent edema, abdomen soft nontender no rebound or guarding no rigidity, patient has no focal neurologic deficits has full range of motion in all 4 extremities and is ambulatory in the emergency department with normal gait and station. Differential diagnosis includes ACS versus endorgan damage versus CHF versus sequela of untreated sleep apnea versus kidney injury etc. Initial workup will be conducted with hematologic labs twelve-lead EKG plain film chest x-ray urinalysis. Initial interventions include Tylenol for now. Initial workup reviewed by me and his hematologic labs are remarkable for white count of 9.2 hemoglobin hematocrit are 14.1 and 40.8 respectively absolute neutrophil count is 5.8 sed rate is 21 D-dimers 0.6 via years criteria PE is excluded, troponin is undetectable at less than 0.01 NT proBNP is normal at less than 20 TSH is 1.8 and the remainder of his hematologic labs are nonactionable. My formal interpretation of his plain from chest x-ray shows no acute processes prior to radiology read. Please see final read for formal interpretation.. Upon repeat evaluation patient reported his headache was better his blood pressures come down to 138/102 heart rates 80 to. Given this patient is appropriate for discharge with with referral to Dr. Cornell for PCP and ongoing management for sleep apnea as well as cardiology for hypertensive management and restratification. Patient verbalized understanding and agreement. <Lizy Price, DO - Last Filed: 06/26/24 18:19> Vital Signs: 06/26/24 16:02 06/26/24 16:03 06/26/24 16:04 Temperature 97.9 F Temperature Source Oral Pulse Rate Pulse Rate [Radial] 99 H Respiratory Rate 18 Blood Pressure 180/136 H 160/100 H Blood Pressure [Right Arm] 160/100 H Blood Pressure Mean 148 120 Blood Pressure Mean [Right Arm] 120 Blood Pressure Source Blood Pressure Source [Right Arm] Automatic Cuff Blood Pressure Position Blood Pressure Position [Right Arm] Sitting 02 Sat by Pulse Oximetry 97 Oxygen Delivery Method Room Air 06/26/24 16:15 06/26/24 16:30 06/26/24 16:45 Temperature Temperature Source Pulse Rate Pulse Rate [Radial] Respiratory Rate Blood Pressure 147/96 H 145/94 H 147/103 H Blood Pressure [Right Arm] Blood Pressure Mean 111 107 117 Blood Pressure Mean [Right Arm] Blood Pressure Source Blood Pressure Source [Right Arm] Blood Pressure Position Blood Pressure Position [Right Arm] 02 Sat by Pulse Oximetry Oxygen Delivery Method 06/26/24 17:15 06/26/24 17:30 06/26/24 17:45 Temperature Temperature Source Pulse Rate Pulse Rate [Radial] Respiratory Rate Blood Pressure 145/101 H 138/100 H 137/99 H Blood Pressure [Right Arm] Blood Pressure Mean 115 113 111 Blood Pressure Mean [Right Arm] Blood Pressure Source Blood Pressure Source [Right Arm] Blood Pressure Position Blood Pressure Position [Right Arm] 02 Sat by Pulse Oximetry Oxygen Delivery Method 06/26/24 18:00 06/26/24 18:15 06/26/24 18:30 Temperature 97.9 F Temperature Source Oral Pulse Rate 82 Pulse Rate [Radial] Respiratory Rate 18 Blood Pressure 135/103 H 148/106 H 138/102 H Blood Pressure [Right Arm] Blood Pressure Mean 112 117 Blood Pressure Mean [Right Arm] Blood Pressure Source Automatic Cuff Blood Pressure Source [Right Arm] Blood Pressure Position Sitting Blood Pressure Position [Right Arm] 02 Sat by Pulse Oximetry Oxygen Delivery Method Room Air Lab Data Lab Results 06/26/24 16:59: WBC 9.2, RBC 4.41 L, Hgb 14.1, Hct 40.8 L, MCV 92.5, MCH 32.0 H, MCHC 34.6, RDW 12.2, Plt Count 229, MPV 9.4, Neut % (Auto) 62.8, Lymph % (Auto) 24.6, Dickson % (Auto) 9.8 H, Eos % (Auto) 2.1, Baso % (Auto) 0.5, Neut # (Auto) 5.8, Lymph # (Auto) 2.3, Dickson # (Auto) 0.9, Eos # (Auto) 0.2, Baso # (Auto) 0.1, ESR 21 H, D-Dimer 0.60 H, Sodium 140, Potassium 3.5, Chloride 105, Carbon Dioxide 30, Anion Gap 8.5, BUN 17, Creatinine 1.00, Estimated Creat Clear 168, Estimated GFR 87, Est GFR ( Amer) 105, Glucose 102 H, Calcium 8.9, Magnesium 2.0, Total Bilirubin 0.7, AST 60 H, ALT 74, Alkaline Phosphatase 82, Troponin I < 0.01, C-Reactive Protein 3.3, NT-Pro-B Natriuret Pep < 20.0, Total Protein 7.6, Albumin 4.3, Globulin 3.3 H, Albumin/Globulin Ratio 1.3, TSH 1.80, Free T4 Index 2.3 L, Thyroxine (T4) 6.7, T3 Uptake 35, HCV Ab BLANQUITA w/Rflx PCR Qn Reactive, HIV Ag/Ab Combo Qual Negative Orders (Tests/Meds): ORDERS Category Date Time Status Chest XR 2 view (NOT portable) [XR chest 2V] Stat Exams 06/26/24 16:30 Completed BNP [NT Pro Brain Natriuretic Pep.] Stat Lab 06/26/24 16:59 Completed CBC w/Auto Diff [Complete Blood Count Auto Diff] Stat Lab 06/26/24 16:59 Completed CMP [Comprehensive Metabolic Panel] Stat Lab 06/26/24 16:59 Completed CRP [C-Reactive Protein] Stat Lab 06/26/24 16:59 Completed D-Dimer Stat Lab 06/26/24 16:59 Completed ESR [Erythrocyte Sedimentation Rate] Stat Lab 06/26/24 16:59 Completed HCV RNA PCR, Quant Stat Lab 06/26/24 16:59 Received HIV Combo Stat Lab 06/26/24 16:59 Completed Hepatitis C Ab Qual. W/ RFX Stat Lab 06/26/24 16:59 Completed Magnesium Stat Lab 06/26/24 16:59 Completed Thyroid Panel Stat Lab 06/26/24 16:59 Completed Trop I [Troponin I] Stat Lab 06/26/24 16:59 Completed ECG Data Tracing #1: I reviewed this ECG and interpreted as documented below: Normal sinus rhythm with a ventricular of 89 bpm. Nonspecific T wave abnormality without acute STEMI. Normal intervals ECG initial impression date: 06/26/24 ECG initial impression time: 16:09 Critical Care <CASANDRA Barnhart - Last Filed: 06/26/24 20:40> Critical Care Time Critical Care Time: No
--- NOTE | 2024-06-26 16:07 | ECG_ITS ---
APPROVED REPORT Exam: Resting ECG HR:89 bpm ECG Measurements Heart Rate 89 AXES WY 152 P 61 QRSd 91 QRS 75 QT 355 T 33 QTc 402 Conclusion SINUS RHYTHM NONSPECIFIC T-WAVE ABNORMALITY Electronically signed by : LAURE ALVAREZ, 06/26/2024 23:32:16
--- NOTE | 2024-06-26 16:30 | XR_ITS ---
PROCEDURE INFORMATION: Exam: XR Chest Exam date and time: 06/26/2024 4:27 PM Age: 33 years old Clinical indication: Other: Hypertension TECHNIQUE: Imaging protocol: Radiologic exam of the chest. Views: 2 views. COMPARISON: No relevant prior studies available. FINDINGS: Lungs: Unremarkable. No consolidation. Pleural spaces: Unremarkable. No pleural effusion. No pneumothorax. Heart/Mediastinum: Unremarkable. No cardiomegaly. Bones/joints: Unremarkable. IMPRESSION: No acute findings.
[2024-06-26 17:06] LABS: Basophils # 0.1 K/mm3 (0-0.2); Basophils % 0.5 % (0.1-2.0); Eosinophils # 0.2 Kmm3 (0.0-0.4); Eosinophils % 2.1 % (0.1-12.0); Hematocrit 40.8 % (42.0-52.0); Hemoglobin 14.1 g/dL (14.1-18.0); Lymphocytes # 2.3 K/mm3 (0.7-4.5); Lymphocytes % 24.6 % (10-50); Mean Corpuscular HGB Conc 34.6 g/dL (31.8-35.4); Mean Corpuscular Volume 92.5 fl (80-94); Mean Platelet Volume 9.4 fl (7.4-10.4); Monocytes # 0.9 K/mm3 (0.1-1.0); Monocytes % 9.8 % (1.7-9.3); Neutrophils # 5.8 K/mm3 (1.8-7.8); Neutrophils % 62.8 % (37.0-80.0); Nucleated Red Blood Cells # 0 10^3/uL; Nucleated Red Blood Cells % 0 %; Platelet Count 229 K/mm3 (142-424); Red Blood Count 4.41 M/mm3 (4.60-6.20); Red Cell Distribution Width 12.2 % (11.5-17.5); White Blood Count 9.2 K/mm3 (4.8-10.8)
[2024-06-26 17:20] LABS: Alanine Aminotransferase 74 U/L (12-78); Albumin Level 4.3 g/dl (3.5-5.0); Albumin/Globulin Ratio 1.3 (1.1-1.8); Alkaline Phosphatase 82 U/L (38-126); Anion Gap 8.5 mEq/L (5-15); Aspartate Amino Transferase 60 U/L (17-59); Bilirubin,Total 0.7 mg/dl (0.2-1.3); Blood Urea Nitrogen 17 mg/dl (9-20); Calcium 8.9 mg/dl (8.4-10.2); Carbon Dioxide 30 mmol/L (22.0-30.0); Chloride 105 mmol/L (98-107); Creatinine Clearance Estimated 168 mL/min (50-200); Estimated Glomerular Filt Rate 87 ml/min (>60); GFR (African American) 105 ML/MIN (>60); Globulin 3.3 g/dL (1.3-3.2); Glucose 102 mg/dl (74-100); Potassium 3.5 mmoL/L (3.5-5.1); Sodium 140 mmol/L (136-145); Total Protein,Serum 7.6 g/dl (6.3-8.2)
[2024-06-26 17:25] LABS: C-Reactive Protein 3.3 mg/L (0-4)
[2024-06-26 17:31] LABS: NT Pro Brain Natriuretic Pep. < 20.0 pg/mL (0-125)
[2024-06-26 17:32] LABS: Troponin I < 0.01 ng/ml (0.00-0.034)
[2024-06-26 18:23] LABS: HIV Combo NEGATIVE (Negative)
[2024-06-26 18:31] LABS: Free Thyroxine Index 2.3 ug/dL (5.93-13.13); Hepatitis C Ab Qual. W/ RFX REACTIVE (Negative); T4 (Thyroxine) 6.7 ug/dl (5.53-11.0); Triiodothryronine (T3) Uptake 35 % (23.5-40.5)
[2024-06-26 18:59] LABS: Erythrocyte Sedimentation Rate 21 mm/hr (0-15)
== END 2024-06-26 18:38 | disposition home or self-care (01) ==
PROVIDERS: Physician Assistant; Emergency Provider Emergency Medicine
DX: R51.9 Headache, unspecified (principal); I10 Essential (primary) hypertension; G47.33 Obstructive sleep apnea (adult) (pediatric); Z11.59 Encounter for screening for other viral diseases; Z11.4 Encounter for screening for human immunodeficiency virus [HIV]
CPT/HCPCS: 71046; 80053; 83735; 83880; 84436; 84443; 84479; 84484; 85025; 85378; 85651; 86140; 86803; 87389; 87522; 93005; 99284

== ENCOUNTER 2024-07-21 14:25 | Outpatient (CLI) | payer OTHER, SELFPAY ==
[2024-07-21 17:39] LABS: Hemoglobin A1C 5.1 % (4.0-6.0)
[2024-07-21 18:06] LABS: Cholesterol 196 mg/dl (140-200); HDL Cholesterol 66 mg/dl (40-60); Triglycerides 78 mg/dl (30-150); VLDL Cholesterol 16 mg/dL (0-40)
[2024-07-21 18:29] LABS: Direct LDL Cholesterol 122.39 mg/dL (100-129)
== END 2024-07-21 23:59 | disposition home or self-care (01) ==
LOC: LAB.DROPOF 22:40
PROVIDERS: PCP Internal Medicine; Visit Provider Internal Medicine
DX: Z13.220 Encounter for screening for lipoid disorders (principal); Z13.1 Encounter for screening for diabetes mellitus
CPT/HCPCS: 80061; 83036

== ENCOUNTER 2024-07-24 08:02 | Outpatient (CLI) | payer OTHER, SELFPAY ==
--- NOTE | 2024-07-24 08:00 | CA_ITS ---
FINAL REPORT TECHNIQUE: Spectral and color Doppler exam CLINICAL HISTORY: HTN COMPARISON: None FINDINGS: DOPPLER RENAL VESSELS HISTORY: Hypertension . FINDINGS: Intrarenal resistive indices on the right are 0.64-0.70, normal . Intrarenal resistive indices on the left are 0.62-0.68, normal . Renal size is normal and symmetric. Note is made of fatty infiltration of the liver. Right main renal artery systolic velocity: 160 cm/sec. Aortic-right renal artery flow velocity ratio: 2.0 COMMENT: No evidence of hemodynamically significant renal artery stenosis . Left main renal artery systolic velocity: 140 cm/sec. Aortic-left renal artery flow velocity ratio: 1.75 COMMENT: No evidence of hemodynamically significant renal artery stenosis . IMPRESSION: No evidence of hemodynamically significant renal artery stenosis CTA or gadolinium-enhanced MR may be considered as a more sensitive exam. Alternatively noncontrast MRI may be considered for assessing main renal arteries for stenosis as a more sensitive exam if the patient has renal insufficiency. Reviewed, Interpreted and Dictated by Julio Haynes MD Transcribed by Angela Lerma Authenticated and . [facility]
== END 2024-07-24 23:59 | disposition home or self-care (01) ==
LOC: RT 08:03
PROVIDERS: PCP Internal Medicine; Visit Provider Nurse Practitioner Family
DX: I10 Essential (primary) hypertension (principal)
CPT/HCPCS: 93976

== ENCOUNTER 2024-08-03 10:58 | Outpatient (CLI) | payer OTHER, SELFPAY | END 2024-08-03 23:59 | disposition home or self-care (01) | LOC: RT 10:59 | PROVIDERS: PCP Nurse Practitioner Family; Visit Provider Nurse Practitioner Family | DX: I49.1 Atrial premature depolarization (principal); I49.3 Ventricular premature depolarization; R94.31 Abnormal electrocardiogram [ECG] [EKG] | CPT/HCPCS: 93225; 93227 ==

== ENCOUNTER 2024-08-11 15:31 | Outpatient (CLI) | payer OTHER, SELFPAY | END 2024-08-11 23:59 | disposition home or self-care (01) | LOC: RT 15:32 | PROVIDERS: PCP Internal Medicine; Visit Provider Nurse Practitioner Family | DX: I44.1 Atrioventricular block, second degree (principal); I47.19 Other supraventricular tachycardia; I49.1 Atrial premature depolarization; I49.3 Ventricular premature depolarization; I49.8 Other specified cardiac arrhythmias | CPT/HCPCS: 93270 ==

== ENCOUNTER 2024-08-18 08:02 | Outpatient (CLI) | payer OTHER, SELFPAY ==
--- NOTE | 2024-08-18 08:00 | CA_ITS ---
APPROVED REPORT EXAM: Comprehensive 2D, Doppler, and color-flow Echocardiogram Youth Coordinator: Albina Waters CRT Ht: 6 ft 2 in Wt: 252lbs BSA: 2.40 BP: 140/100 mmHg Indications: Palpitations 2D Dimensions LA Volume 35.50 mL LA Volume Index 14.40 mL/m2 (M/F) 16-34 M-Mode Dimensions RVDd 2.31 cm (0.9-2.6) LA Diam 3.22 cm (1.9-4.0) LVDd 6.24 cm (3.5-5.7) LVDs 4.16 cm (3.5-5.7) IVSd 1.04 cm (0.6-1.1) PWd 0.57 cm (0.6-1.1) EF (Teich) 61.00% FS 33.30% EDV (Teich) 196.90 mL TAPSE 1.41 (<1.7) ESV (Teich) 76.80 mL LV Diastology E Decel Time 157 (160-240 msec) E/A Ratio 1.10 MED A' 9.70 cm/s LAT A' 8.50 cm/s Aortic Valve AO Peak GR. 5.30 mmHg Mitral Valve MV A Velocity 66.0 (40-130 cm/s) E/A Ratio 1.10 Pulmonary Valve PV Peak Velocity 102.0 (50-150 cm/s) Tricuspid Valve TR P. Velocity 282.00 cm/s RAP Estimate 10.00 mmHg RVSP 41.90 mmHg Left Ventricle The left ventricle is normal size. The left ventricular systolic function is normal. The left ventricular ejection fraction is within the normal range. There is normal left ventricular wall thickness. There is normal LV segmental wall motion. The left ventricular diastolic function is normal. LVEF is 55%. Right Ventricle The right ventricle is normal size. The right ventricular systolic function is normal. Atria The left atrium size is normal. The right atrium size is normal. There is no Doppler evidence of interatrial shunt. Aortic Valve The aortic valve opens well. There is no aortic valvular stenosis. No aortic regurgitation is present. Mitral Valve The mitral valve is normal in structure. No evidence of mitral valve stenosis. There is no mitral valve regurgitation noted. Tricuspid Valve Tricuspid valve is grossly normal in structure and function. Trace tricuspid regurgitation. There is insufficient TR jet to estimate RVSP. Pulmonic Valve The pulmonary valve is normal in structure. Trace pulmonic regurgitation. Great Vessels The aortic root is normal in size. IVC is normal in size and collapses >50% with inspiration. Pericardium There is no pericardial effusion. Other Information Study Quality: Adequate Conclusion Normal biventricular systolic function. No significant valvular stenosis or regurgitation. Electronically signed by : Angela Tripathi MD 08/22/2024 21:58:21
--- OUTSIDE RECORDS SUMMARY | 2024-08-18 08:04 | XMS_ITS | Patient Health Record ---
Author Organization [facility] Billing Info Address [address] [place], [place] [id number] Care Team Providers Care Marketing Consultant Name Role Phone DAE KOHLI Unavailable [phone] Reason For Referral No Information Medications Medication SIG (Take, Route, Fr equency, Duration) Notes Start Date End Date Status Seroquel 100 MG 1 tablet Orally Once a day for 30 day(s) Active Social History Tobacco Use: Social History Observation Description Date Details (start date - stop date) Current Smoker NA - NA Sex Assigned At : Social History Observation Description Sex Assigned At Male Tobacco Status: Question Answer Notes Patient is a current every day smoker Problems Problem Type SNOMED Code ICD Code Onset Dates Problem Status W/U Status Risk Notes Problem 7670396 Primary insomnia (F51.01) Active confirmed Problem 17922987 Hepatitis C viru s infection without hepatic coma, unspecified chronicity (B19.20) Active confirmed Problem 83364081 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
--- OUTSIDE RECORDS SUMMARY | 2024-08-18 08:04 | XMS_ITS | Patient Health Record ---
Author Organization [facility] Billing Info Address [address] [place] [id number] Care Team Providers Care River Tester Name Role Phone SERA MCCOY Primary Care Provider Reason For Referral No Information Medications Medication SIG (Take, Route, Fr equency, Duration) Notes Start Date End Date Status Augmentin 500-125 MG as directed Orally TID for 10 days 01/22/2017 Active Social History Tobacco Use: Social History Observation Description Date Details (start date - stop date) Unknown Tobacco Status: Question Answer Notes Patient is a smokeless tobacco user 2-4 per day Plan Of Treatment No Information Insurance Providers Payer Name Payer Address Payer Phone Subscriber Number Group Number Insured Name Patient Relationship to Insured Coverage Start Date Coverage End Date [id number] [address] [place], [place] [id number] Jenna Garcia Natural Child - Insured has Financial Responsibility 7 7 Medical (General) History Surgical History Surgery Date(Month/Year) adenoidectomy tonsillectomy
== END 2024-08-18 23:59 | disposition home or self-care (01) ==
LOC: RT 08:02
PROVIDERS: PCP Internal Medicine; Visit Provider Nurse Practitioner Family
DX: G47.33 Obstructive sleep apnea (adult) (pediatric) (principal); I10 Essential (primary) hypertension; J02.9 Acute pharyngitis, unspecified; R00.2 Palpitations
CPT/HCPCS: 87070; 93306

== ENCOUNTER 2024-08-20 14:15 | Emergency (ER) | payer OTHER, SELFPAY ==
[2024-08-20 14:20] VITALS: BP 125/86; PULSE 96; RESP 16; TEMP 36.6; O2SAT 98; BMI 32.1
--- NOTE | 2024-08-20 14:26 | ED_ITS ---
<Statement entered by Ronal Larsen MD - 08/20/24 15:30> I was consulted by the RACHAEL, and we discussed the complexity of the problems being addressed. I approved the treatment and management plan for this patient's care in the emergency department, thus performing a substantive portion of the medical decision making. Ronal Larsen MD, JANETH, FACEP Discharge Plan Disposition Patient Disposition: Home, Self-Care Condition: Good Prescriptions Prescriptions: No Action amoxicillin-pot clavulanate 875-125 mg tablet 1 tab PO BID 7 Days Qty: 14 0RF benzonatate 100 mg capsule 100 mg PO TID PRN (Reason: cough) Qty: 30 0RF telmisartan 40 mg tablet 40 mg PO DAILY Qty: 30 2RF chlorthalidone 50 mg tablet 50 mg PO DAILY Qty: 30 2RF clonidine HCl 0.1 mg tablet 0.1 mg PO BID PRN (Reason: hypertensive emergency) Qty: 60 0RF Referrals Follow up/Referrals: Sudhakar Suarez MD [Physician, Ear, Nose, Throat] - See instructions Javi Cornell DO [Primary Care Provider, Family Practice] - See instructions Mayi Martinez APRN [Nurse Practitioner, Ear, Nose, Throat] - See instructions Activity Restrictions/Add. Instructions Additional Instructions/Restrictions: Please return to the emergency department with any worsening signs or symptoms, please utilize Debrox ezqa-qce-sobbtan solution for earwax buildup, please follow-up with ear nose throat doctor, please follow-up with your primary care doctor, utilize nsky-hns-cruinqo cold and flu medications for symptomatic relief, use anti-inflammatory medication such as ibuprofen and Tylenol for body aches and chills for your upper respiratory infection. Clinical Impressions Clinical Impression: Upper respiratory infection, Cerumen impaction Instructions Patient Instructions: DI for Viral Upper Respiratory Infection -- Adult, DI for Cerumen Impaction Print Language Print Language: Setswana Discharge ED Provider: Ronal Larsen General Adult HPI General Stated complaint: cough, congestion, pain in L ear Time Seen by Provider: 08/20/24 14:19 Mode of Arrival: Ambulatory Source of Information: Patient Limitations: No Limitations History of Present Illness HPI narrative: 33-year-old male presents to the emergency department with congestion, chest congestion productive cough, bilateral ear fullness, and fever and chills Tmax of 100.9 , this morning, utilize Tylenol which provided some relief, patient denies any chest pain shortness of breath, nausea and vomiting constipation diarrhea no urinary type symptomatology, no abdominal pain. Patient denies any recent sick contacts, is a current everyday tobacco user (vapes), denies any alcohol or drug use, other past medical history consistent with hypertension otherwise unremarkable past medical history. Of note patient has tried daog-ghl-wftskkm Debrox solution for bilateral ear fullness however has had no relief. However, patient has not yet tried that OTC medication during this episode. Onset (ago): hour(s) Related Data Previous Rx's ?Medication ?Instructions ?Recorded clonidine HCl 0.1 mg tablet 0.1 mg PO BID PRN hyperten sive 07/21/24 emergency #60 tabs chlorthalidone 50 mg tablet 50 mg PO DAILY #30 tabs telmisartan 40 mg tablet 40 mg PO DAILY #30 tabs 08/26 amoxicillin 875 mg-potassium 1 tab PO BID 7 days #14 t abs 08/18/24 clavulanate 125 mg tablet benzonatate 100 mg capsule 100 mg PO TID PRN cough #30 caps 08/18/24 Allergies Allergy/AdvReac Type Severity Reaction Status Date / Time No Known Allergies Allergy Verified 08/19/24 15:53 [facility] Disclaimer: The information contained in this section may have been updated after the patient was seen, as this information can be updated by other users. Medical History (Updated 08/20/24 @ 15:05 by CASANDRA Torres) Sleep apnea Hypertension Nausea vomiting and diarrhea Infection of skin of both ear lobes Respiratory tract infection Cellulitis of external ear, bilateral Surgical History (Updated 08/19/24 @ 16:02 by Beth Larsen MA) H/O adenoidectomy History of tonsillectomy H/O removal of cyst Social History Smoking Status: Current every day smoker tobacco type: e-cigarettes second hand exposure: Yes alcohol intake: current alcohol intake frequency: a few times a week counseling provided: provider counseling substance use type: former substance user, marijuana, heroin and methamphetamine current occupational status: employed Travel in the last 8 weeks?: None household members: family and children housing: house 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 current occupational exposures/hazards: No Have you lived/traveled outside US in past 30 days?: No Contact w/someone who lives/traveled outside US past 30 days?: No Exposure to someone with infectious disease in past 14 days?: No Do you have a fever (greater than 100.4 F or 38 C)?: No Have you tested positive for COVID-19?: No Exposed to someone with COVID-19 in past 14 days?: No Do you have a sore throat?: No Do you have a cough?: No Do you have any weakness?: No Do you have any diarrhea?: No Are you experiencing any unusual bleeding?: No Do you have any muscle aches/pain?: No Do you have any abdominal pain?: No Are you experiencing loss of taste or smell?: No Other Medical History Have you received the Flu Vaccine for this season: No Have you received the Pneumonia Vaccine: No ROS Obtained: Yes All systems reviewed & no additional complaints except as documented Physical Exam General General appearance: alert and in no apparent distress Head Head exam: atraumatic and normocephalic Eye Eye exam: Present PERRL and EOMI ENT ENT exam: Present normal oropharynx, mucous membranes moist, normal external ear exam and other (Cerumen impaction bilaterally, left worse than right); Absent TM's normal bilaterally Neck Neck exam: Present normal inspection Chest Chest inspection: Present normal inspection and symmetric chest wall rise Respiratory Respiratory exam: Present normal lung sounds bilaterally; Absent respiratory distress, wheezes, stridor or accessory muscle use Cardiovascular Cardiovascular exam: Present regular rate and normal rhythm Abdominal Exam Abdominal exam: Present soft; Absent tenderness Extremities Exam Extremities exam: Present normal inspection Neurological Exam Neurological exam: Present alert and oriented X3 Psychiatric Psychiatric exam: Present normal affect Skin Skin exam: Present warm and dry Medical Decision Making Medical Records Medical records reviewed: Yes I reviewed the patient's medical records. Screening: Per USPSTF and CDC recommendations, given the prevalence of disease in our region, it is our hospital?s policy to screen for HIV and viral Hepatitis for all patients aged 18 and over and those with ongoing risk factors. Nabil Inquiry Pt receiving controlled substance: No Nabil was queried for this patient: No Medical Decision Narrative: 33-year-old male presents to the emergency department with URI type symptomatology and bilateral ear fullness left worse than right, differential diagnose include but not limited to acute URI, serous otitis media, cerumen impaction, otitis media, otitis externa. I discussed patient case with team for Dr. Larsen I offered rapid antigen swabs to the patient, patient denied at this time would like to pursue ear irrigation, I think this is appropriate as patient has cerumen impaction bilaterally, will have nursing staff attempt to irrigate the patient's bilateral ears. Was notified by nursing staff after irrigation was complete, reexamination using the otoscope, I can see the tympanic membrane, white reflex elicited, there is still some cerumen in the ear, however impaction has improved, recommend Debrox qnjz-bns-sbvgxxl solution, as needed for symptomatic relief, patient tells me that he wears earplugs at work, recommend to use these sparingly, patient has follow-up slated with ear nose throat doctor recommend keep this follow-up. Patient was given strict ED return precautions. Patient voiced understanding and agreement of treatment plan/discharge plan, recommend gmvz-pqj-zacduft cold and flu medications for symptomatic relief of URI type symptomatology. Recommend follow-up with PCP. Critical Care Critical Care Time Critical Care Time: No
--- OUTSIDE RECORDS SUMMARY | 2024-08-20 14:41 | XMS_ITS | Patient Health Record ---
Author Organization [facility] Billing Info Address [address] [place] [address] Care Team Providers Care Prototype Engineer Name Role Phone SERA MCCOY Primary Care [...] Date [employer] [address] [place], [place] [id number] Jenna Garcia Natural Child - Insured has Financial Responsibility 7 7 Medical (General) History Surgical History Surgery Date(Month/Year) tonsillectomy adenoidectomy
--- OUTSIDE RECORDS SUMMARY | 2024-08-20 14:41 | XMS_ITS | Patient Health Record ---
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 [employer] [facility] [address] [place], [place] [id number] [phone] [id number] Rigo Rodriugez Self - patient is the insured 8 8 Medical (General) History Medical History History ICD Code insomnia ADD Hepatitis C Surgical History Surgery Date(Month/Year)
[2024-08-20 15:21] VITALS: BP 113/76; PULSE 92; RESP 16; TEMP 37; O2SAT 97
== END 2024-08-20 15:22 | disposition home or self-care (01) ==
PROVIDERS: Emergency Provider Student in an Organized Health Care Education/Training Program; PCP Internal Medicine
DX: H92.02 Otalgia, left ear (principal); H61.23 Impacted cerumen, bilateral; J06.9 Acute upper respiratory infection, unspecified; R05.9 Cough, unspecified; F17.290 Nicotine dependence, other tobacco product, uncomplicated
CPT/HCPCS: 99282

== ENCOUNTER 2025-01-17 15:43 | Emergency (ER) | payer OTHER, SELFPAY ==
[2025-01-17 15:50] VITALS: BP 165/88; PULSE 92; RESP 18; TEMP 36.8; O2SAT 95; BMI 31.2
[2025-01-17 16:00] VITALS: BP 134/97; PULSE 90; RESP 19; O2SAT 97
--- OUTSIDE RECORDS SUMMARY | 2025-01-17 16:00 | XMS_ITS | Patient Health Record ---
Author Organization [facility] Billing Info Address [address] [place] [address] Care Team Providers Care Reinforcing Steel Placer Name Role Phone SERA MCCOY Primary Care Provider [phone] Reason For Referral No Information Medications Medication [...] Insured Coverage Start Date Coverage End Date [facility] [facility] [address] [place], [place] [id number] Jenna Garcia Child - Insured has Financial Responsibility 7 7 Medical (General) History Surgical History Surgery Date(Month/Year) adenoidectomy tonsillectomy
--- OUTSIDE RECORDS SUMMARY | 2025-01-17 16:00 | XMS_ITS | Patient Health Record ---
Author Organization [facility] Billing Info Address [address] [place], [place] [address] Care Team Providers Care Fuel Island Attendant Name Role Phone DAE KOHLI Unavailable [phone] Reason For Referral No Information Medications Medication [...] Problem Status W/U Status Risk Notes Problem [id number] Primary insomnia (F51.01) Active confirmed Problem 37689446 Hepatitis C viru s infection without hepatic coma, unspecified chronicity (B19.20) Active confirmed Problem 13031355 ADD (attention deficit disorder) without hyperactivity (F98.8) Active confirmed Plan Of Treatment No Information Insurance Providers Payer Name Payer Address Payer Phone Subscriber Number Group Number Insured Name Patient Relationship to Insured Coverage Start Date Coverage End Date [facility] [address] [place], [place] [id number] Rigo Rodriguez Self - patient is the insured 8 8 Medical (General) History Medical History History ICD Code insomnia ADD Hepatitis C Surgical History Surgery Date(Month/Year)
--- NOTE | 2025-01-17 16:08 | XR_ITS ---
PROCEDURE INFORMATION: Exam: XR Chest Exam date and time: 01/17/2025 4:07 PM Age: 34 years old Clinical indication: Cough; Additional info: Chest pain and cough TECHNIQUE: Imaging protocol: Radiologic exam of the chest. Views: 2 views. COMPARISON: CR XR CHEST 2V 06/26/2024 4:27 PM FINDINGS: Lungs: Unremarkable. No consolidation. Pleural spaces: Unremarkable. No pleural effusion. No pneumothorax. Heart/Mediastinum: Unremarkable. No cardiomegaly. Bones/joints: Unremarkable. IMPRESSION: No acute findings.
[2025-01-17] MEDS: AZITHROMYCIN 250MG TABLET 500 MG PO (16:16)
[2025-01-17] MEDS: IPRATROPIUM/ALBUTEROL 3 ML NEB 9 ML IH (16:16)
--- NOTE | 2025-01-17 16:16 | ECG_ITS ---
APPROVED REPORT Exam: Resting ECG HR:88 bpm ECG Measurements Heart Rate [address] 166 P 55 QRSd 95 QRS 77 QT 344 T 73 QTc 389 Conclusion Normal sinus rhythm without acute ST or T wave changes concerning for ischemia Electronically signed by : Anya Dutton, 01/18/2025 00:37:12
--- NOTE | 2025-01-17 16:27 | HMH.EDGENADL ---
Discharge Plan Disposition Patient Disposition: Home, Self-Care Condition: Good Prescriptions Prescriptions: New azithromycin 250 mg tablet 250 mg PO DAILY 4 Days Qty: 4 0RF Rx Instructions: start on day 2 of therapy prednisone 20 mg tablet 40 mg PO DAILY 4 Days Qty: 8 0RF No Action diphenoxylate-atropine [Lomotil] 2.5-0.025 mg tablet 1 tab PO .Every 4 hours PRN (Reason: diarrhea) valsartan 160 mg tablet 160 mg PO DAILY Qty: 30 5RF benzonatate 100 mg capsule 100 mg PO TID PRN (Reason: cough) Qty: 30 0RF telmisartan 40 mg tablet 40 mg PO DAILY Qty: 30 2RF clonidine HCl 0.1 mg tablet 0.1 mg PO BID PRN (Reason: hypertensive emergency) Qty: 60 0RF ondansetron 4 mg tablet,disintegrating 4 mg PO Q8H PRN (Reason: nausea and vomiting) Qty: 30 0RF chlorthalidone 50 mg tablet See Rx Instructions .ROUTE .COMPLEX Qty: 90 3RF Dose Instruction: TAKE ONE TABLET BY MOUTH EVERY DAY Rx Instructions: TAKE ONE TABLET BY MOUTH EVERY DAY Referrals Follow up/Referrals: Javi Cornell DO [Primary Care Provider, Family Practice] - See instructions Activity Restrictions/Add. Instructions Additional Instructions/Restrictions: Take the steroids daily for 4 days. Take azithromycin daily for 4 days. Use the inhaler every 4 hours while you are awake for the next couple days. Return to the emergency department for any acute worsening shortness of breath. Otherwise follow-up with your primary care provider. Clinical Impressions Clinical Impression: Bronchitis Instructions Patient Instructions: Acute Bronchitis Print Language Print Language: Albanian Discharge ED Provider: Anya Dutton General Adult HPI General Chief complaint: Shortness of Breath/Dyspnea Stated complaint: SOA AND COUGH Time Seen by Provider: 01/17/25 15:56 Mode of Arrival: Ambulatory Source of Information: Patient Description of Symptoms (Recalled from ER Triage Doc. by RN): nora presents for peumonia that he noticed a week ago. chika stated he has a productive cough with yellow tinged phlegm, hes short of sir, and has a little chest pian only when coughing. History of Present Illness HPI narrative: Patient is a 34-year-old otherwise healthy male with only past medical history of hypertension who takes antihypertensive who presents to the emergency department with a cough for 6 days with some shortness of breath. Patient reports pain in his chest only with coughing. Patient states that he only has a productive cough in the morning but denies any other production. Patient states that he initially had fevers but those have since resolved. Patient reports congestion. Patient states that he has been doing Mucinex in the morning in the evening to help with his symptoms. Patient has had no previous surgeries, patient denies any recent surgeries. Patient denies any history of blood clots. Patient denies any hemoptysis. Patient is not on any hormone medications. Related Data Home Medications ?Medication ?Instructions ?Recorded ?Confirmed diphenoxylate-atropine 2.5 1 tab PO .Every 4 hours PRN 09/08/24 09/08/24 mg-0.025 mg tablet (Lomotil) diarrhea Previous Rx's ?Medication ?Instructions ?Recorded clonidine HCl 0.1 mg tablet 0.1 mg PO BID PRN hypertensive 07/21/24 emergency #60 tabs telmisartan 40 mg tablet 40 mg PO DAILY #30 tabs 08/07/24 benzonatate 100 mg capsule 100 mg PO TID PRN cough #30 caps 08/18/24 ondansetron 4 mg disintegrating 4 mg PO Q8H PRN nausea and 09/02/24 tablet vomiting #30 tabs valsartan 160 mg tablet 160 mg PO DAILY #30 tabs 09/08/24 chlorthalidone 50 mg tablet See Rx Instructions .Route 12/22/24 .COMPLEX #90 tabs azithromycin 250 mg tablet 250 mg PO DAILY 4 days #4 tabs 01/17/25 prednisone 20 mg tablet 40 mg (2 x 20 mg) PO DAILY 4 days 01/17/25 #8 tabs Allergies Allergy/AdvReac Type Severity Reaction Status Date / Time No Known Allergies Allergy Verified 09/08/24 15:01 [facility] Disclaimer: The information contained in this section may have been updated after the patient was seen, as this information can be updated by other users. Medical History (Updated 01/17/25 @ 17:13 by Anya Dutton DO) Abnormal electrocardiogram [ECG] [EKG] Sleep apnea Hypertension Nausea vomiting and diarrhea Infection of skin of both ear lobes Respiratory tract infection Cellulitis of external ear, bilateral Surgical History H/O adenoidectomy History of tonsillectomy H/O removal of cyst Social History Smoking Status: Light tobacco smoker tobacco type: e-cigarettes second hand exposure: Yes alcohol intake: current alcohol intake frequency: a few times a week counseling provided: provider counseling substance use type: former substance user, marijuana, heroin and methamphetamine current occupational status: employed Travel in the last 8 weeks?: None household members: family and children housing: house 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 current occupational exposures/hazards: No Have you lived/traveled outside US in past 30 days?: No Contact w/someone who lives/traveled outside US past 30 days?: No Exposure to someone with infectious disease in past 14 days?: No Do you have a fever (greater than 100.4 F or 38 C)?: No Have you tested positive for COVID-19?: No Exposed to someone with COVID-19 in past 14 days?: No Do you have a sore throat?: No Do you have a cough?: No Do you have any weakness?: No Do you have any diarrhea?: No Are you experiencing any unusual bleeding?: No Do you have any muscle aches/pain?: No Do you have any abdominal pain?: No Are you experiencing loss of taste or smell?: No Other Medical History Have you received the Flu Vaccine for this season: No Have you received the Pneumonia Vaccine: No ROS Obtained: Yes All systems reviewed & no additional complaints except as documented and Yes Systems reviewed as appropriate & no additional complaints except as documented Physical Exam General General appearance: alert and in no apparent distress Head Head exam: atraumatic, normocephalic and normal inspection Eye Eye exam: Present normal appearance, PERRL and EOMI; Absent scleral icterus ENT ENT exam: Present normal exam and normal external ear exam Neck Neck exam: Present normal inspection and full ROM Chest Chest inspection: Present normal inspection and symmetric chest wall rise Respiratory Respiratory exam: Present normal lung sounds bilaterally and wheezes (expiratory throughout all lung house, no decreased breath sounds, no tachypnea); Absent respiratory distress Cardiovascular Cardiovascular exam: Present regular rate, normal rhythm and normal heart sounds Abdominal Exam Abdominal exam: Present soft and distention; Absent tenderness, guarding or rebound Extremities Exam Extremities exam: Present normal inspection and full ROM Back Exam Back exam: Present normal inspection and full ROM Neurological Exam Neurological exam: Present alert and oriented X3 Psychiatric Psychiatric exam: Present normal affect and normal mood Skin Skin exam: Present warm and dry Medical Decision Making Medical Records Medical records reviewed: Yes I reviewed the patient's medical records. Screening: Per USPSTF and CDC recommendations, given the prevalence of disease in our region, it is our hospital?s policy to screen for HIV and viral Hepatitis for all patients aged 18 and over and those with ongoing risk factors. Nabil Inquiry Pt receiving controlled substance: No Vital Signs: 01/17/25 15:50 01/17/25 16:00 01/17/25 16:31 Temperature 98.2 F Temperature Source Temporal Artery Scan Pulse Rate 90 91 H Pulse Rate [Right Radial] 92 H Respiratory Rate 18 19 13 Blood Pressure 134/97 H 119/74 Blood Pressure [Right Arm] 165/88 H Blood Pressure Mean [Right Arm] 113 Blood Pressure Source [Right Arm] Automatic Cuff Blood Pressure Position [Right Arm] Sitting 02 Sat by Pulse Oximetry 95 97 100 Oxygen Delivery Method Room Air Room Air Room Air 01/17/25 17:00 Temperature Temperature Source Pulse Rate 108 H Pulse Rate [Right Radial] Respiratory Rate 18 Blood Pressure Blood Pressure [Right Arm] Blood Pressure Mean [Right Arm] Blood Pressure Source [Right Arm] Blood Pressure Position [Right Arm] 02 Sat by Pulse Oximetry 97 Oxygen Delivery Method Room Air Lab Data Lab results reviewed: Yes I reviewed the patient's lab results. Orders (Tests/Meds): ED MEDICATIONS Discontinued Medications Generic Name Dose Route Start Last Admin Trade Name Akbarq PRN Reason Stop Dose Admin Albuterol/Ipratropium 9 ml 01/17/25 16:08 01/17/25 16:16 Ipratropium/Albuterol 3 Ml Neb 01/17/25 16:09 9 ml ONCE ONE Administration Albuterol/Ipratropium 2 puff 01/17/25 17:12 Combivent 20mcg/100mcg Respimat Inhaler 01/17/25 17:13 ONCE ONE Azithromycin 500 mg 01/17/25 16:09 01/17/25 16:16 Azithromycin 250mg Tablet PO 01/17/25 16:10 500 mg ONCE ONE Administration Prednisone 40 mg 01/17/25 16:08 01/17/25 16:16 Prednisone 20mg Tab PO 01/17/25 16:09 40 mg ONCE ONE Administration ORDERS Category Date Time Status CXR 2 view (NOT portable) [XR chest 2V] Stat Exams 01/17/25 16:08 Completed Medical Decision Narrative: Patient is a 34-year-old male with a past medical history of hypertension who presents to the emergency department with cough, upper respiratory symptoms and shortness of breath. On arrival, patient was hemodynamically stable with unremarkable vital signs. Differential includes but not limited to: Upper respiratory infection, viral pneumonia, pneumonia, bronchitis. Patient is not tachycardic patient is not hypoxic, patient is otherwise PERC negative therefore low concern for pulmonary embolism. Very low concern for ACS/PA. EKG was obtained which was reviewed and interpreted by myself and showed normal sinus rhythm without acute ST or T wave changes concerning for ischemia. Chest x-ray was obtained which showed no acute focal saltation, pneumothorax pleural effusion or other acute findings. On exam, patient had expiratory wheezing in all lung house. I suspect patient has a viral syndrome causing bronchitis. Patient's expiratory wheezing, DuoNebs were ordered. Given patient's length of symptoms, patient was given prednisone in the emergency department as well as azithromycin. After DuoNebs, patient had significant improvement in his wheezing, patient's symptoms were improved. Patient was sent with an MDI inhaler, steroids as well as azithromycin. Patient was discharged home in stable condition return precautions were discussed. Critical Care Critical Care Time Critical Care Time: No
[2025-01-17 16:31] VITALS: BP 119/74; PULSE 91; RESP 13; O2SAT 100
[2025-01-17 17:00] VITALS: PULSE 108; RESP 18; O2SAT 97
[2025-01-17 17:16] VITALS: BP 129/80; PULSE 99; RESP 16; TEMP 36.9; O2SAT 97
[2025-01-17] MEDS: ALBUTEROL-HFA 90MCG/PUFF INHALER 8GM 2 PUFF IH (17:26)
[2025-01-17] MEDS: AEROCHAMBER/OPTIHALER 1 UNIT MC (17:26)
[2025-01-17 17:28] VITALS: O2SAT 97
== END 2025-01-17 17:28 | disposition home or self-care (01) ==
PROVIDERS: Emergency Provider Student in an Organized Health Care Education/Training Program; PCP Internal Medicine
DX: J40 Bronchitis, not specified as acute or chronic (principal); I10 Essential (primary) hypertension; G47.33 Obstructive sleep apnea (adult) (pediatric)
CPT/HCPCS: 71046; 93005; 99284

== ENCOUNTER 2025-01-24 00:50 | Emergency (ER) | payer OTHER, SELFPAY ==
--- OUTSIDE RECORDS SUMMARY | 2025-01-24 00:55 | XMS_ITS | Patient Health Record ---
Author Organization [facility] Billing Info Address [address] [place], [place] [address] Care Team Providers Care Instrument Specialist Name Role Phone DAE KOHLI Unavailable [phone] Reason For Referral No Information Medications Medication [...] Problem Status W/U Status Risk Notes Problem 5105804 Primary insomnia (F51.01) Active confirmed Problem 12248991 Hepatitis C viru s infection without hepatic coma, unspecified chronicity (B19.20) Active confirmed Problem 72044262 ADD (attention deficit disorder) without hyperactivity (F98.8) Active confirmed Plan Of Treatment No Information Insurance Providers Payer Name Payer Address Payer Phone Subscriber Number Group Number Insured Name Patient Relationship to Insured Coverage Start Date Coverage End Date [facility] [address] [place], [place] [id number] Rigo Rodriguez Self - patient is the insured 8 8 Medical (General) History Medical History History ICD Code insomnia ADD Hepatitis C Surgical History Surgery Date(Month/Year)
--- OUTSIDE RECORDS SUMMARY | 2025-01-24 00:56 | XMS_ITS | Patient Health Record ---
Author Organization [facility]velin es Billing Info Address [address], [place] [address] Care Team Providers Care Zoology Technical Officer Name Role Phone SERA MCCOY Primary Care [...] Start Date Coverage End Date FANY BROWNE [facility] [id number] [place], [place] [phone] [id number] Jenna Gracia Child - Insured has Financial Responsibility 7 7 Medical (General) History Surgical History Surgery Date(Month/Year) tonsillectomy adenoidectomy
[2025-01-24 00:59] VITALS: BP 154/67; PULSE 89; RESP 18; TEMP 36.6; O2SAT 98; BMI 31.2
--- NOTE | 2025-01-24 01:04 | XR_ITS ---
PROCEDURE INFORMATION: Exam: XR Chest Exam date and time: 01/24/2025 1:23 AM Age: 34 years old Clinical indication: Cough and other: Syncope; Additional info: Cough, syncope, bronchitis x's 1 wk TECHNIQUE: Imaging protocol: Radiologic exam of the chest. Views: 2 views. Total images: 2 COMPARISON: CR Chest 01/17/2025 4:07 PM FINDINGS: Lungs: Calcified left upper lobe granuloma. No consolidation. No pulmonary vascular congestion or edema. Pleural spaces: Unremarkable. No pleural effusion. No pneumothorax. Heart/Mediastinum: Unremarkable. No cardiomegaly. No mediastinal widening or hilar enlargement. Bones/joints: Unremarkable. IMPRESSION: No radiographically acute cardiopulmonary process.
--- NOTE | 2025-01-24 01:04 | ECG_ITS ---
APPROVED REPORT Exam: Resting ECG HR:80 bpm ECG Measurements Heart Rate 80 AXES ME 165 P 67 QRSd 89 QRS 67 QT 358 T 44 QTc 394 Conclusion SINUS RHYTHM NORMAL ECG Electronically signed by : LISSY SALAZAR, 01/24/2025 06:28:58
[2025-01-24] MEDS: LIDOCAINE 1% W/EPI 1:100,000 20ML VIAL 5 ML SQ (01:19)
[2025-01-24] MEDS: TET/DIPHTH/PERT-ADULT 0.5ML SYRINGE 0.5 ML IM (01:20)
[2025-01-24] MEDS: BACITRACIN ZINC OINT 30GM TUBE TP (01:22)
[2025-01-24 01:32] LABS: Hematocrit 42.0 % (42.0-52.0); Hemoglobin 14.9 g/dL (14.1-18.0); Immature Granulocytes % 0.7 %; Mean Corpuscular HGB Conc 35.5 g/dL (31.8-35.4); Mean Corpuscular Hemoglobin 32.3 pg (27.0-31.2); Mean Corpuscular Volume 91.1 fl (80-94); Nucleated Red Blood Cells % 0 %; Platelet Count 254 K/mm3 (142-424); Red Blood Count 4.61 M/mm3 (4.60-6.20); Red Cell Distribution Width-SD 40.6 fL; White Blood Count 13.7 K/mm3 (4.8-10.8)
[2025-01-24 01:39] VITALS: BP 141/78; PULSE 92; RESP 18; TEMP 36.5; O2SAT 98
--- NOTE | 2025-01-24 01:40 | [facility].EDGENADL ---
Discharge Plan Disposition Patient Disposition: Home, Self-Care Condition: Good Prescriptions Prescriptions: New potassium chloride 10 mEq capsule, extended release 20 meq PO ONCE Qty: 2 0RF No Action diphenoxylate-atropine [Lomotil] 2.5-0.025 mg tablet 1 tab PO .Every 4 hours PRN (Reason: diarrhea) valsartan 160 mg tablet 160 mg PO DAILY Qty: 30 5RF benzonatate 100 mg capsule 100 mg PO TID PRN (Reason: cough) Qty: 30 0RF telmisartan 40 mg tablet 40 mg PO DAILY Qty: 30 2RF clonidine HCl 0.1 mg tablet 0.1 mg PO BID PRN (Reason: hypertensive emergency) Qty: 60 0RF ondansetron 4 mg tablet,disintegrating 4 mg PO Q8H PRN (Reason: nausea and vomiting) Qty: 30 0RF chlorthalidone 50 mg tablet See Rx Instructions .ROUTE .COMPLEX Qty: 90 3RF Dose Instruction: TAKE ONE TABLET BY MOUTH EVERY DAY Rx Instructions: TAKE ONE TABLET BY MOUTH EVERY DAY azithromycin 250 mg tablet 250 mg PO DAILY 4 Days Qty: 4 0RF Rx Instructions: start on day 2 of therapy prednisone 20 mg tablet 40 mg PO DAILY 4 Days Qty: 8 0RF Referrals Follow up/Referrals: Javi Cornell DO [Primary Care Provider, Family Practice] - See instructions Referral Note: Please follow-up cough, consider pulmonology follow-up if persistent, reevaluate wound, recheck electrolytes Activity Restrictions/Add. Instructions Additional Instructions/Restrictions: You were evaluated in the ER and are believed to be appropriate for discharge at this time. Continue using the inhaler you had been prescribed at the last time you visited the ER. The stitches will absorb on their own. Apply the bacitracin ointment to the wound twice daily. You can shower/bathe like normal. Once the wound is completely healed, use sunscreen and vitamin E oil to avoid scarring. Increase your fluid intake including water, Gatorade, Pedialyte. Avoid caffeine and alcohol. Make an appointment with your primary care doctor for reevaluation in 2 to 3 days to reevaluate your cough and your wound. He can also follow-up on your labs from the hospital and consider referring you to a stage builder if your cough does not improve. Return to the ER with any new, worsening, or otherwise concerning symptoms. Clinical Impressions Clinical Impression: Laceration of face, Syncope, vasovagal Print Language Print Language: [place] Islander Discharge ED Provider: Maddie Hong Adult HPI General Chief complaint: PAIN Stated complaint: Right side laceration on head Time Seen by Provider: 01/24/25 01:04 Mode of Arrival: Ambulatory Source of Information: Patient Description of Symptoms (Recalled from ER Triage Doc. by RN): Patient states he was standing straight when he began coughing, states during that coughing event he lost his balance, and went to catch himself, which he failed and hit his right orbital ridge on the counter top, approx 8mm abrasion. Bleeding is controlled. States he has had 8-10 beers tonight. History of Present Illness HPI narrative: 34-year-old male who was recently treated for bronchitis and just finished a course of azithromycin and prednisone presents to the ER with a laceration at the lateral edge of the right eyebrow. Patient and dad are both present in the room. Patient reports drinking up to 10 beers total spread out over this afternoon and evening while watching football. Patient reports he got into a coughing fit in the kitchen and coughed so hard that he had to grab the counter because he started to get lightheaded. He states his vision went dark as he was going to the floor, and he immediately woke up as soon as he hit the floor. Very brief loss of consciousness. He states he has had hard coughing fits causing similar symptoms a few times over the last few weeks. He states he had been taking Mucinex. He denies fevers, chills, chest pain, difficulty breathing, nausea, pain, diarrhea. He denies any headache, dizziness, numbness, tingling, or weakness. He denies any sensation of palpitations or history of cardiac problems. He does not take any blood thinners. He does have a history of hypertension. His dad is overtly intoxicated and mildly agitated, difficult to redirect, he demands to know why his son has these episodes of lightheadedness with heavy coughing and we discussed possibilities including vasovagal response. Ultimately patient's dad was removed from the room by security to allow for continued treatment and management of the patient because the dad kept interrupting and taking away from the patient's care. Related Data Home Medications ?Medication ?Instructions ?Recorded ?Confirmed diphenoxylate-atropine 2.5 1 tab PO .Every 4 hours PRN 09/08/24 09/08/24 mg-0.025 mg tablet (Lomotil) diarrhea Previous Rx's ?Medication ?Instructions ?Recorded clonidine HCl 0.1 mg tablet 0.1 mg PO BID PRN hypertensive 07/21/24 emergency #60 tabs telmisartan 40 mg tablet 40 mg PO DAILY #30 tabs 08/07/24 benzonatate 100 mg capsule 100 mg PO TID PRN cough #30 caps 08/18/24 ondansetron 4 mg disintegrating 4 mg PO Q8H PRN nausea and 09/02/24 tablet vomiting #30 tabs valsartan 160 mg tablet 160 mg PO DAILY #30 tabs 09/08/24 chlorthalidone 50 mg tablet See Rx Instructions .Route 12/22/24 .COMPLEX #90 tabs azithromycin 250 mg tablet 250 mg PO DAILY 4 days #4 tabs 01/17/25 prednisone 20 mg tablet 40 mg (2 x 20 mg) PO DAILY 4 days 01/17/25 #8 tabs potassium chloride 10 mEq 20 meq (2 x 10 mEq) PO ONCE #2 caps 01/24/25 capsule,extended release Allergies Allergy/AdvReac Type Severity Reaction Status Date / Time No Known Allergies Allergy Verified 09/08/24 15:01 [facility] Disclaimer: The information contained in this section may have been updated after the patient was seen, as this information can be updated by other users. Medical History (Updated 01/24/25 @ 01:37 by Maddie Hong MD) Abnormal electrocardiogram [ECG] [EKG] Sleep apnea Hypertension Nausea vomiting and diarrhea Infection of skin of both ear lobes Respiratory tract infection Cellulitis of external ear, bilateral Surgical History H/O adenoidectomy History of tonsillectomy H/O removal of cyst Social History Smoking Status: Light tobacco smoker tobacco type: e-cigarettes second hand exposure: Yes alcohol intake: current alcohol intake frequency: a few times a week counseling provided: provider counseling substance use type: former substance user, marijuana, heroin and methamphetamine current occupational status: employed Travel in the last 8 weeks?: None household members: family and children housing: house 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 current occupational exposures/hazards: No Have you lived/traveled outside [place] in past 30 days?: No Contact w/someone who lives/traveled outside US past 30 days?: No Exposure to someone with infectious disease in past 14 days?: No Do you have a fever (greater than 100.4 F or 38 C)?: No Have you tested positive for COVID-19?: No Exposed to someone with COVID-19 in past 14 days?: No Do you have a sore throat?: No Do you have a cough?: No Do you have any weakness?: No Do you have any diarrhea?: No Are you experiencing any unusual bleeding?: Yes Do you have any muscle aches/pain?: Yes Do you have any abdominal pain?: No Are you experiencing loss of taste or smell?: No Other Medical History Have you received the Flu Vaccine for this season: No Have you received the Pneumonia Vaccine: No ROS Obtained: Yes Systems reviewed as appropriate & no additional complaints except as documented Per HPI Physical Exam General General appearance: alert, in no apparent distress and obese Head Head exam: normocephalic and other (L-shaped laceration at the lateral edge of the right eyebrow approximately 1.5 cm in total length, gaping but hemostatic, there is a very superficial narrow scrape approximately 4 cm in length inferior to this. Hemostatic.) Expanded Head Exam Head image:  1. 1.5 cm flap, gaping laceration with no surrounding bruising or underlying deformity or crepitus Eye Eye exam: Present PERRL and EOMI; Absent conjunctival redness, jaundice or conjunctival injection ENT ENT exam: Present mucous membranes moist Neck Neck exam: Present normal inspection, full ROM and other (No pain or paresthesias, full range of motion); Absent tenderness or lymphadenopathy Chest Chest inspection: Present symmetric chest wall rise Respiratory Respiratory exam: Present normal lung sounds bilaterally; Absent respiratory distress, wheezes or stridor Cardiovascular Cardiovascular exam: Present regular rate and normal rhythm Abdominal Exam Abdominal exam: Present soft; Absent distention or tenderness Extremities Exam Extremities exam: Present full ROM; Absent edema Neurological Exam Neurological exam: Present alert and oriented X3; Absent motor sensory deficit Psychiatric Psychiatric exam: Present normal affect and normal mood Skin Skin exam: Present warm and dry Medical Decision Making Medical Records Medical records reviewed: Yes I reviewed the patient's medical records. Screening: Per USPSTF and CDC recommendations, given the prevalence of disease in our region, it is our hospital?s policy to screen for HIV and viral Hepatitis for all patients aged 18 and over and those with ongoing risk factors. Nabil Inquiry Pt receiving controlled substance: No Vital Signs: 01/24/25 00:59 01/24/25 01:39 Temperature 97.8 F 97.7 F Temperature Source Oral Oral Pulse Rate 92 H Pulse Rate [Left] 89 Respiratory Rate 18 18 Blood Pressure 141/78 H Blood Pressure [Right Arm] 154/67 H Blood Pressure Mean [Right Arm] 96 02 Sat by Pulse Oximetry 98 Oxygen Delivery Method Room Air Room Air Lab Data Lab Results 01/24/25 01:16: WBC 13.7 H, RBC 4.61, Hgb 14.9, Hct 42.0, MCV 91.1, MCH 32.3 H, MCHC 35.5 H, RDW 12.4, Plt Count 254, MPV 9.2, Neut % (Auto) 55.1, Lymph % (Auto) 34.1, [place] % (Auto) 7.9, Eos % (Auto) 1.7, Baso % (Auto) 0.5, Neut # (Auto) 7.6, Lymph # (Auto) 4.7 H, [place] # (Auto) 1.1 H, Eos # (Auto) 0.2, Baso # (Auto) 0.1, Sodium 129 L, Potassium 3.2 L, Chloride 88 L, Carbon Dioxide 34 H, Anion Gap 10.2, BUN 14, Creatinine 0.90, Estimated Creat Clear 187, Estimated GFR 97, Est GFR ( Amer) 118, Glucose 97, Calcium 9.2, Total Bilirubin 0.4, AST 44, ALT 55, Alkaline Phosphatase 79, Troponin I < 0.01, Total Protein 8.1, Albumin 4.6, Globulin 3.5 H, Albumin/Globulin Ratio 1.3 01/24/25 01:16 01/24/25 01:16 Orders (Tests/Meds): ED MEDICATIONS Discontinued Medications Generic Name Dose Route Start Last Admin Trade Name Freq PRN Reason Stop Dose Admin Bacitracin 1 gm 01/24/25 01:10 01/24/25 01:22 Bacitracin Zinc Oint 30gm Tube TP 01/24/25 01:11 1 gm ONCE ONE Administration Lidocaine/Epinephrine 5 ml 01/24/25 01:06 01/24/25 01:19 Lidocaine 1% W/Epi 1:100,000 20ml Vial SQ 01/24/25 01:07 5 ml ONCE ONE Administration Tetanus/Reduced Diphtheria/Acell Pertussis 0.5 ml 01/24/25 01:04 01/24/25 01:20 Tet/Diphth/Pert-Adult 0.5ml Syringe IM 01/24/25 01:05 0.5 ml .ONCE ONE Administration ORDERS Category Date Time Status CXR 2 view (NOT portable) [XR chest 2V] Stat Exams 01/24/25 01:04 Completed CBC w/Auto Diff [Complete Blood Count Auto Diff] Stat Lab 01/24/25 01:16 Completed CMP [Comprehensive Metabolic Panel] Stat Lab 01/24/25 01:16 Completed Trop I [Troponin I] Stat Lab 01/24/25 01:16 Completed Medical Decision Narrative: In summary, this 34-year-old male with comorbidities described in the HPI presents to the emergency department today with coughing fit causing brief syncope causing him to have a laceration at the corner of the right eye from striking his head on the counter. On initial evaluation patient is hemodynamically stable, afebrile, GCS 15, independently ambulatory into the ER, NIH 0, though he reports having multiple beers this afternoon, he demonstrates no findings of intoxication associated deformity, crepitus, or bruising. He has a 1.5 cm L-shaped flap laceration at the lateral edge of the right eyebrow. Hemostatic. PERRLA and EOMI. No other evidence of injury. Patient was independently ambulatory into the ER, no neck pain, tenderness, deformity, or step-off. Differential diagnosis includes but is not limited to laceration, regarding the syncope I considered the possibility of arrhythmia, palpitations, electrolyte abnormality, I do not suspect ACS because patient had no chest pain or pressure proceeding and had a very clear etiology for vasovagal syncope which I believe is the most likely cause. I did consider arrhythmogenic abnormality as well. Based on these concerns, I ordered EKG, basic hematologic and serum labs, I did order chest x-ray to reevaluate the patient's lungs since he still reports persistent cough despite finishing azithromycin and prednisone.. Lidocaine with epinephrine was used for local infiltration before the laceration on the face was repaired. See procedure note for details. Tdap booster administered. Bacitracin applied to the wound and provided to the patient. ECG personally interpreted demonstrates normal sinus rhythm, rate 80, normal axis, normal MS and QTc, no STEMI, normal ECG. Specifically there is no evidence of WPW, Brugada, HCM, or LVH. Labs personally reviewed demonstrate mild leukocytosis, no anemia, normal platelets. Chemistry analyzer is currently down and the lab cannot tell me how long it will be until results are back or what results they will be able to give. I have extremely low suspicion for acutely actionable abnormality that would require the patient to be hospitalized or have further ER management, so I had a shared decision making discussion with him about staying for results versus being discharged. He would prefer to go home and understands that I will call him if any abnormalities require further intervention or for him to return to the ER. I believe this is reasonable. Bacitracin was given to the patient to take home for wound care. He was instructed on use of this as well as wound care, follow-up, and return precautions for the ER. He indicated understanding and was discharged in stable condition. Ambulated independently from the ER in good condition. His chemistry labs eventually resulted. He does have hyponatremia and hypokalemia, these are likely a result of the chlorthalidone use. Neither of these are so severe that he needs to return to the ER, but I did call the patient and update him about these results. I sent in a prescription for a one-time dose of potassium to his pharmacy of choice. I instructed him to follow-up closely with his PCP for the things that we discussed in the ER as well as to recheck his electrolytes. He indicated understanding and is going to follow-up with PCP. No further management at this time. Critical Care Critical Care Time Critical Care Time: No
[2025-01-24 01:51] LABS: Troponin I < 0.01 ng/ml (0.00-0.034)
[2025-01-24 01:58] LABS: Alanine Aminotransferase 55 U/L (12-78); Albumin Level 4.6 g/dl (3.5-5.0); Albumin/Globulin Ratio 1.3 (1.1-1.8); Alkaline Phosphatase 79 U/L (38-126); Anion Gap 10.2 mEq/L (5-15); Aspartate Amino Transferase 44 U/L (17-59); Bilirubin,Total 0.4 mg/dl (0.2-1.3); Blood Urea Nitrogen 14 mg/dl (9-20); Calcium 9.2 mg/dl (8.4-10.2); Carbon Dioxide 34 mmol/L (22.0-30.0); Chloride 88 mmol/L (98-107); Creatinine Clearance Estimated 187 mL/min (50-200); Creatinine,Serum 0.90 mg/dl (0.66-1.25); Estimated Glomerular Filt Rate 97 ml/min (>60); GFR (African American) 118 ML/MIN (>60); Globulin 3.5 g/dL (1.3-3.2); Glucose 97 mg/dl (74-100); Potassium 3.2 mmoL/L (3.5-5.1); Sodium 129 mmol/L (136-145); Total Protein,Serum 8.1 g/dl (6.3-8.2)
== END 2025-01-24 01:44 | disposition home or self-care (01) ==
PROVIDERS: Emergency Provider Emergency Medicine; PCP Internal Medicine
DX: S01.01XA Laceration without foreign body of scalp, initial encounter (principal); R55 Syncope and collapse; E87.1 Hypo-osmolality and hyponatremia; E87.6 Hypokalemia; F17.290 Nicotine dependence, other tobacco product, uncomplicated; W19.XXXA Unspecified fall, initial encounter
CPT/HCPCS: 12001; 71046; 80053; 84484; 85025; 90471; 90715; 93005; 99284; J2004